=== PATIENT | female | born 1945 | race Caucasian/White ===

== ENCOUNTER 2018-08-02 05:24 | Inpatient (IN) | payer MEDICARE, BC ==
[~2018-08-02] VITALS: Ht 160 cm; Wt 51.7 kg
[2018-08-02] VITALS (7 sets, daily range): BP systolic 126–166; BP diastolic 57–97
[2018-08-02] MEDS ORDERED: RESVERATROL50 MG PO (05:44)
[2018-08-02] MEDS ORDERED: CALCIUM-MAGNES1 EAC7 PO (05:44)
[2018-08-02] MEDS ORDERED: RIFAMPIN300 MG PO (05:44)
[2018-08-02] MEDS ORDERED: ETHAMBUTOL HCL400 MG PO (05:44)
[2018-08-02] MEDS ORDERED: KLOR-CON 1010 MEQ ORAL (05:44)
[2018-08-02] MEDS ORDERED: PROPAFENONE HC150 MG PO (05:44)
[2018-08-02] MEDS ORDERED: FOLIC ACID1 M1 PO (05:44)
[2018-08-02] MEDS ORDERED: ELIQUIS5 MG PO (05:44)
[2018-08-02] MEDS ORDERED: COLCRYS0.6 M1 PO (05:44)
[2018-08-02] MEDS ORDERED: ZITHROMAX250 MG ORAL (05:44)
[2018-08-02] MEDS ORDERED: ASTAXANTHIN4 MG PO (05:44)
[2018-08-02] MEDS ORDERED: NORVASC2.5 MG ORAL (05:44)
[2018-08-02] MEDS ORDERED: PREDNISONE10 MG ORAL (05:44)
[2018-08-02] MEDS ORDERED: dilTIAZem HCl 25mg/5ml Inj IVP ONE ×8 (05:45→06:45)
--- NOTE | 2018-08-02 05:52 | Emergency Room Report ---
History of Present Illness General Chief Complaint: Palpitations Source: Patient Present Illness HPI Is a 72-year-old female with history of atrial fibrillation. She is currently taking Elliquis. She presents with chief complaint of rapid A. fib. She said that for the last week she fell her heart rate beating fast. Most the time minutes sinus tachycardia on the monitor at home. She thinks the reason for this is because she's being currently treating for MAC with multiple antibiotics. She woke up tonight feeling startle. She fell her heart beating very fast. On the monitor it said possible atrial fibrillation at 160s. She denies any syncope. She denies any chest pain or shortness of breath. Similar symptom in the past. Allergies: Coded Allergies: DIPHENHYDRAMINE (Verified Allergy, Unknown, 03/26/15) SHELLFISH DERIVED (Verified Allergy, Unknown, 03/26/15) Uncoded Allergies: HUMARA (Allergy, Unknown, 08/02/18) Patient History Past Medical History: see triage record, old chart reviewed, HTN, AFib Past Surgical History: other Pertinent Family History: none Social History: Denies: smoking Last Menstrual Period: YUSEF Now: No Immunizations: other Reviewed Nursing Documentation: PMH: Agreed; PSxH: Agreed Nursing Documentation-PMH Hx Hypertension: Yes - RA, Hx COPD: Yes Hx Cancer: Yes - CURED Review of Systems Eye: Denies: eye pain, blurred vision ENT: Denies: ear pain, nose congestion, throat swelling Respiratory: Denies: cough, shortness of breath Cardiovascular: Reports: palpitations; Denies: chest pain Gastrointestinal: Denies: abdominal pain, diarrhea, nausea, vomiting Musculoskeletal: Denies: back pain, joint pain Skin: Denies: rash Neurological: Denies: headache, numbness Endocrine: Denies: increased thirst, increased urine Hematologic/Lymphatic: Denies: easy bruising All Other Systems: negative except mentioned in HPI Physical Exam Vital Signs Date Time Temp Pulse Resp B/P (MAP) Pulse Ox O2 Delivery O2 Flow Rate FiO2 08/02/18 05:27 97.9 140 18 151/97 98 Room Air vitals with tachycardia Sp02 EP Interpretation: reviewed, normal General Appearance: well appearing, no apparent distress, alert Head: normocephalic, atraumatic Eyes: bilateral eye PERRL, bilateral eye EOMI ENT: hearing grossly normal, normal pharynx Neck: full range of motion, supple, no meningismus Respiratory: chest non-tender, lungs clear, normal breath sounds Cardiovascular #1: no murmur, tachycardia, irregularly irregular Gastrointestinal: normal bowel sounds, non tender, no mass, no organomegaly, no bruit, non-distended Musculoskeletal: back normal, gait/station normal, normal range of motion Psychiatric: mood/affect normal Skin: warm/dry Procedures Critical Care Time Critical Care Time Critical care is mandated in this patient who presented with rapid atrial fibrillation. Patient require my urgent intervention to attenuate the risks of metabolic collapse which may lead to cardiovascular collapse and . Critical care time is 35 minutes excluding any reportable procedure. Critical care time included evaluation, multiple reevaluation, looking at old charts, interpreting laboratory and diagnostic data, discussing case with patient and family and consultants, and charting. Medical Decision Making Diagnostic Impression: Primary Impression: Rapid atrial fibrillation Additional Impressions: Acute exacerbation of CHF (congestive heart failure) Qualified Codes: I50.9 - Heart failure, unspecified Anemia Qualified Codes: D64.9 - Anemia, unspecified ER Course Patient presents with rapid atrial flutter ablation. Heart rate control after couple doses of Cardizem. She felt better. Also a component of CHF. Lasix given. No evidence of ACS, PE, dissection to name a few. We'll admit. Lab Results Impression labs with anemia EKG Diagnostic Results Rate: tachycardiac Rhythm: other - afib ST Segments: other - NSST changes ASA given to the pt in ED: No Rhythm Strip Diag. Results EP Interpretation: yes Rate: 120 Rhythm: no PVC's, no ectopy, other - A. fib Chest X-Ray Diagnostic Results Chest X-Ray Diagnostic Results : Chest X-Ray Ordered: Yes # of Views/Limited/Complete: 1 View Indication: Chest Pain EP Interpretation: Yes Interpretation: no consolidation, no pneumothorax, other - Cardiomegaly with small effusion Impression: Other - CM Electronically Signed by: Moises Bradley MD Last Vital Signs Date Time Temp Pulse Resp B/P (MAP) Pulse Ox O2 Delivery O2 Flow Rate FiO2 08/02/18 05:27 97.9 140 18 151/97 98 Room Air Status: improved Disposition: ADMITTED INPATIENT Condition: Serious Moises Bradley MD Aug 02, 2018 05:52
--- NOTE | 2018-08-02 05:53 | NUR ---
ED Nurse Note: Patient BIBAnnette RA 41 from home c/o rapid heart rate for 1x week. Patient saw her chancery clerk on Saturday, EKG normal. Patient woke with rapid heart rate this morning and called 911. EKG showed AFIB.
[2018-08-02 05:58] LABS: HEMATOCRIT 23.6 % (37.0-47.0); HEMOGLOBIN 7.1 G/DL (12.0-16.0); MEAN CORPUSCULAR VOLUME 68 FL (80-99); PLATELET COUNT 387 K/UL (150-450); RED BLOOD COUNT 3.46 M/UL (4.20-5.40); RED CELL DISTRIBUTION WIDTH 18.1 % (11.6-14.8); WHITE BLOOD COUNT 8.4 K/UL (4.8-10.8)
[2018-08-02 06:11] LABS: INR 1.2 (0.9-1.1)
--- NOTE | 2018-08-02 06:25 | Diagnostic Imaging Report ---
EXAM: XR Chest, 1 View CLINICAL HISTORY: SOB TECHNIQUE: Frontal view of the chest. COMPARISON: 03/26/15 FINDINGS: Lungs: Interval increase in central lung and interstitial lung markings which may reflect mild edema. Pleural space: Mild blunting of the left costophrenic angle. No pneumothorax. Heart: Stable upper limits of normal cardiovascular silhouette likely accentuated by low lung volumes. Mediastinum: Unremarkable. Bones/joints: Degenerative changes and scoliosis in the thoracic spine. Degenerative changes in both shoulders with calcific density along the inferior aspect of the left glenohumeral joint, unchanged. Vasculature: Calcified mildly tortuous thoracic aorta is again seen. IMPRESSION: Suspect mild edema and small left effusion. Low lung volumes limit evaluation
[2018-08-02 06:35] LABS: ALANINE AMINOTRANSFERASE 24 U/L (12-78); ALBUMIN 2.6 G/DL (3.4-5.0); ALBUMIN/GLOBULIN RATIO 0.7 (1.0-2.7); ALKALINE PHOSPHATASE 80 U/L (46-116); ANION GAP 12 mmol/L (5-15); ASPARTATE AMINO TRANSFERASE 22 U/L (15-37); BILIRUBIN,TOTAL 0.6 MG/DL (0.2-1.0); BLOOD UREA NITROGEN 20 mg/dL (7-18); CALCIUM 9.4 MG/DL (8.5-10.1); CARBON DIOXIDE 25 MMOL/L (21-32); CHLORIDE 105 MMOL/L (98-107); CKMB 1.5 NG/ML (0.0-3.6); CREATINE KINASE 32 U/L (26-308); POTASSIUM 3.6 MMOL/L (3.5-5.1); SODIUM 142 MMOL/L (136-145)
[2018-08-02 07:13] LABS: APPEARANCE,URINE CLEAR; BILIRUBIN, URINE NEGATIVE (NEGATIVE); COLOR,URINE PALE YELLOW; GLUCOSE, URINE (UA) NEGATIVE (NEGATIVE); KETONES,URINE 1+ (NEGATIVE); LEUKOCYTE ESTERASE ,URINE NEGATIVE (NEGATIVE); NITRITE,URINE NEGATIVE (NEGATIVE); PH,URINE 7 (4.5-8.0); PROTEIN,URINE NEGATIVE (NEGATIVE); UROBILINOGEN,URINE NORMAL MG/DL (0.0-1.0)
--- NOTE | 2018-08-02 07:43 | NUR ---
ED Nurse Note: HR 92 at this time, does not complain of any discomfort. Breakfast tray provided at bedside. Will cont to monitor.
--- NOTE | 2018-08-02 08:15 | NUR ---
ED Nurse Note: HR is 87/ sinus rhythm tammy. Will cont to monitor.
--- NOTE | 2018-08-02 08:48 | NUR ---
ED Nurse Note: Report given to Carmen RN at ext [phone]. Pt to transfered to room 201-2 per protocol with all belongings.
--- NOTE | 2018-08-02 09:15 | NUR ---
NURSE NOTES: Received telephone report from Juana BARNETT from ED. Pt. arrived at 0915 from ED. Pt. a/o x 4. No sign of distress. Noted with elevated HR. Denies pain at present. IV line at left AC #20g. in placed SL. Called Dr. Vargas for admit orders. Awaiting for response.
[2018-08-02] MEDS ORDERED: dilTIAZem HCl 50mg/10ml Inj IVP SCH (10:45)
--- NOTE | 2018-08-02 11:37 | NUR ---
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 97.9 HR 140 RR 18 B/P 151/97 BUN 20 BNP 5197 CXR= MILD SMALL LEFT EFFUSION IS: CARDIZEM IV IV BOLUS NS 500ML ADMITTED TO TELE8 TELE STATUS DCP RETURN HOME
--- NOTE | 2018-08-02 15:15 | Cardiology Progress Note ---
Assessment/Plan Assessment/Plan paf ra anemia hs of anal cancer [id number] keep off rythmol message left for dr oro stool ob may need prbx tx keep on eleiquis ekg abn consider switih to med amiod to sinus maint Objective Last 24 Hour Vital Signs Date Time Temp Pulse Resp B/P (MAP) Pulse Ox O2 Delivery O2 Flow Rate FiO2 08/02/18 10:47 154 08/02/18 10:45 146 156/114 08/02/18 10:44 166 08/02/18 09:31 Nasal Cannula 2.0 08/02/18 09:20 97.9 131 20 134/76 (95) 98 08/02/18 09:16 141 08/02/18 09:06 97.9 87 18 126/57 100 Room Air 08/02/18 08:42 97.9 87 18 126/57 100 Room Air 08/02/18 07:03 97.9 90 18 134/88 99 Room Air 08/02/18 06:37 129 116/68 08/02/18 06:26 111 121/53 08/02/18 06:20 112 109/57 08/02/18 06:13 130 133/69 08/02/18 06:11 137 130/66 08/02/18 06:03 130 130/69 08/02/18 05:57 160 124/89 08/02/18 05:52 97.9 160 18 151/97 98 Room Air 08/02/18 05:27 97.9 140 18 151/97 98 Room Air Laboratory Tests Test 08/02/18 05:53 08/02/18 06:12 08/02/18 11:15 White Blood Count 8.4 K/UL (4.8-10.8) Red Blood Count 3.46 M/UL (4.20-5.40) L Hemoglobin 7.1 G/DL (12.0-16.0) L Hematocrit 23.6 % (37.0-47.0) L Mean Corpuscular Volume 68 FL (80-99) L Mean Corpuscular Hemoglobin 20.5 PG (27.0-31.0) L Mean Corpuscular Hemoglobin Concent 30.1 G/DL (32.0-36.0) L Red Cell Distribution Width 18.1 % (11.6-14.8) H Platelet Count 387 K/UL (150-450) Mean Platelet Volume 5.1 FL (6.5-10.1) L Neutrophils (%) (Auto) % (45.0-75.0) Lymphocytes (%) (Auto) % (20.0-45.0) Monocytes (%) (Auto) % (1.0-10.0) Eosinophils (%) (Auto) % (0.0-3.0) Basophils (%) (Auto) % (0.0-2.0) Prothrombin Time 12.1 SEC (9.30-11.50) H Prothromb Time International Ratio 1.2 (0.9-1.1) H Activated Partial Thromboplast Time 33 SEC (23-33) Sodium Level 142 MMOL/L (136-145) Potassium Level 3.6 MMOL/L (3.5-5.1) Chloride Level 105 MMOL/L (98-107) Carbon Dioxide Level 25 MMOL/L (21-32) Anion Gap 12 mmol/L (5-15) Blood Urea Nitrogen 20 mg/dL (7-18) H Creatinine 1.0 MG/DL (0.55-1.30) Estimat Glomerular Filtration Rate mL/min (>60) Glucose Level 104 MG/DL (74-106) Calcium Level 9.4 MG/DL (8.5-10.1) Total Bilirubin 0.6 MG/DL (0.2-1.0) Aspartate Amino Transf (AST/SGOT) 22 U/L (15-37) Alanine Aminotransferase (ALT/SGPT) 24 U/L (12-78) Alkaline Phosphatase 80 U/L (46-116) Total Creatine Kinase 32 U/L (26-308) Creatine Kinase MB 1.5 NG/ML (0.0-3.6) Creatine Kinase MB Relative Index 4.6 Troponin I 0.027 ng/mL (0.000-0.056) 0.051 ng/mL (0.000-0.056) Pro-B-Type Natriuretic Peptide 5197 pg/mL (0-125) H Total Protein 6.5 G/DL (6.4-8.2) Albumin 2.6 G/DL (3.4-5.0) L Globulin 3.9 g/dL Albumin/Globulin Ratio 0.7 (1.0-2.7) L Urine Color Pale yellow Urine Appearance Clear Urine pH 7 (4.5-8.0) Urine Specific [place] 1.010 (1.005-1.035) Urine Protein Negative (NEGATIVE) Urine Glucose (UA) Negative (NEGATIVE) Urine Ketones 1+ (NEGATIVE) H Urine Blood Negative (NEGATIVE) Urine Nitrite Negative (NEGATIVE) Urine Bilirubin Negative (NEGATIVE) Urine Urobilinogen Normal MG/DL (0.0-1.0) Urine Leukocyte Esterase Negative (NEGATIVE) Luis Escobar MD Aug 02, 2018 15:15
--- NOTE | 2018-08-02 15:33 | Cardiology Progress Note ---
Assessment/Plan Assessment/Plan paf ra anemia hs of anal cancer [id number] keep off rythmol message left for dr saunders stool ob may need prbx tx check ldh for hemolysis keep on eliquis iff ob neg or if anemia is no confimred onrepat checking ekg abn consider switih to med amiod or other agent maint sinu dc norvasc start dilt hold off on treatment for mac until anemiaa fib is stabalized ep to see hold of Objective Last 24 Hour Vital Signs Date Time Temp Pulse Resp B/P (MAP) Pulse Ox O2 Delivery O2 Flow Rate FiO2 08/02/18 10:47 154 08/02/18 10:45 146 156/114 08/02/18 10:44 166 08/02/18 09:31 Nasal Cannula 2.0 08/02/18 09:20 97.9 131 20 134/76 (95) 98 08/02/18 09:16 141 08/02/18 09:06 97.9 87 18 126/57 100 Room Air 08/02/18 08:42 97.9 87 18 126/57 100 Room Air 08/02/18 07:03 97.9 90 18 134/88 99 Room Air 08/02/18 06:37 129 116/68 08/02/18 06:26 111 121/53 08/02/18 06:20 112 109/57 08/02/18 06:13 130 133/69 08/02/18 06:11 137 130/66 08/02/18 06:03 130 130/69 08/02/18 05:57 160 124/89 08/02/18 05:52 97.9 160 18 151/97 98 Room Air 08/02/18 05:27 97.9 140 18 151/97 98 Room Air Laboratory Tests Test 08/02/18 05:53 08/02/18 06:12 08/02/18 11:15 White Blood Count 8.4 K/UL (4.8-10.8) Red Blood Count 3.46 M/UL (4.20-5.40) L Hemoglobin 7.1 G/DL (12.0-16.0) L Hematocrit 23.6 % (37.0-47.0) L Mean Corpuscular Volume 68 FL (80-99) L Mean Corpuscular Hemoglobin 20.5 PG (27.0-31.0) L Mean Corpuscular Hemoglobin Concent 30.1 G/DL (32.0-36.0) L Red Cell Distribution Width 18.1 % (11.6-14.8) H Platelet Count 387 K/UL (150-450) Mean Platelet Volume 5.1 FL (6.5-10.1) L Neutrophils (%) (Auto) % (45.0-75.0) Lymphocytes (%) (Auto) % (20.0-45.0) Monocytes (%) (Auto) % (1.0-10.0) Eosinophils (%) (Auto) % (0.0-3.0) Basophils (%) (Auto) % (0.0-2.0) Prothrombin Time 12.1 SEC (9.30-11.50) H Prothromb Time International Ratio 1.2 (0.9-1.1) H Activated Partial Thromboplast Time 33 SEC (23-33) Sodium Level 142 MMOL/L (136-145) Potassium Level 3.6 MMOL/L (3.5-5.1) Chloride Level 105 MMOL/L (98-107) Carbon Dioxide Level 25 MMOL/L (21-32) Anion Gap 12 mmol/L (5-15) Blood Urea Nitrogen 20 mg/dL (7-18) H Creatinine 1.0 MG/DL (0.55-1.30) Estimat Glomerular Filtration Rate mL/min (>60) Glucose Level 104 MG/DL (74-106) Calcium Level 9.4 MG/DL (8.5-10.1) Total Bilirubin 0.6 MG/DL (0.2-1.0) Aspartate Amino Transf (AST/SGOT) 22 U/L (15-37) Alanine Aminotransferase (ALT/SGPT) 24 U/L (12-78) Alkaline Phosphatase 80 U/L (46-116) Total Creatine Kinase 32 U/L (26-308) Creatine Kinase MB 1.5 NG/ML (0.0-3.6) Creatine Kinase MB Relative Index 4.6 Troponin I 0.027 ng/mL (0.000-0.056) 0.051 ng/mL (0.000-0.056) Pro-B-Type Natriuretic Peptide 5197 pg/mL (0-125) H Total Protein 6.5 G/DL (6.4-8.2) Albumin 2.6 G/DL (3.4-5.0) L Globulin 3.9 g/dL Albumin/Globulin Ratio 0.7 (1.0-2.7) L Urine Color Pale yellow Urine Appearance Clear Urine pH 7 (4.5-8.0) Urine Specific [place] 1.010 (1.005-1.035) Urine Protein Negative (NEGATIVE) Urine Glucose (UA) Negative (NEGATIVE) Urine Ketones 1+ (NEGATIVE) H Urine Blood Negative (NEGATIVE) Urine Nitrite Negative (NEGATIVE) Urine Bilirubin Negative (NEGATIVE) Urine Urobilinogen Normal MG/DL (0.0-1.0) Urine Leukocyte Esterase Negative (NEGATIVE) Luis Escobar MD Aug 02, 2018 15:33
[2018-08-02 15:52] LABS: HEMATOCRIT 24.9 % (37.0-47.0); HEMOGLOBIN 7.7 G/DL (12.0-16.0); MEAN CORPUSCULAR VOLUME 68 FL (80-99); PLATELET COUNT 436 K/UL (150-450); RED BLOOD COUNT 3.66 M/UL (4.20-5.40); RED CELL DISTRIBUTION WIDTH 18.2 % (11.6-14.8); WHITE BLOOD COUNT 9.4 K/UL (4.8-10.8)
[2018-08-02] MEDS: dilTIAZem HCl 30mg tab ORAL SCH ×2 (16:00→21:21)
--- NOTE | 2018-08-02 16:24 | Consultation ---
Consult Note Consult Note Cardiac EP full consult dictated # [id number] Sandhya Turner MD Aug 02, 2018 16:24
[2018-08-02 16:33] LABS: % IRON SATURATION 4 % (15-50); IRON 8 ug/dL (50-175); TOTAL IRON BINDING CAPACITY 206 ug/dL (250-450)
[2018-08-02 16:34] LABS: LACTATE DEHYDROGENASE 195 U/L (81-234)
[2018-08-02] MEDS ORDERED: Metoprolol Succinate XL 50mg tab ORAL SCH (18:00)
--- NOTE | 2018-08-02 18:46 | NUR ---
NURSE NOTES: Called and f/u blood bank/lab regarding type and cross and if blood is ready. It still in process and at around 1855 they will call 2E.
--- NOTE | 2018-08-02 19:07 | NUR ---
HAND-OFF: Report given to Kim BARNETT. Pt. remain stable.
--- NOTE | 2018-08-02 19:10 | NUR ---
NURSE NOTES: Received patient from ANIBAL Borja. Patient on bed AOx4, noted weakness, both upper and lower extremities affected by arthritis. Verbalizes having pains with ADLs. IV site on left AC intact and patent. Call light within reach. Bed brakes engaged.
--- NOTE | 2018-08-02 19:45 | History and Physical Report ---
DATE OF ADMISSION: 08/02/2018 HISTORY OF PRESENT ILLNESS: This is an elderly female, who was living at home, came to the emergency room for palpitation and atrial fibrillation with rapid ventricular rate. The patient also has [id number] short of breath. Probably, she is in CHF. The patient has generalized weakness and having multiple bruises on the both legs, also has a history of interstitial, probably tuberculosis, was treated with . CURRENT MEDICATIONS: She is taking apixaban, Norvasc, folic acid, prednisone, resveratrol, and . ALLERGIES: NKA to medications. PHYSICAL EXAMINATION: GENERAL: This is cachectic female, mild short of breath. VITAL SIGNS: Blood pressure 156/114, pulse 131 to 154, respirations 20, and temperature 97.9. SKIN: Dry and poor skin turgor. HEENT: No JVD. CHEST: Bilateral decreased breath sounds. Few crackles. CARDIOVASCULAR: Regular rate and rhythm. No gallop. No murmur. ABDOMEN: Soft. Positive bowel sounds. EXTREMITIES: No CCE. NEUROLOGICAL: Generalized weakness. ASSESSMENT: 1. Atrial fibrillation with rapid ventricular rate. 2. Coagulopathy. 3. Anemia. 4. Short of breath, possible congestive heart failure. 5. Congestive heart failure. PLAN: The patient was add digoxin, metoprolol, and Cardizem. Cardiology consult was obtained. We are holding apixaban and Lovenox. Stool occult blood x2. Type and cross transfuse 1 unit. I discussed with Dr. Escobar as well as Dr. Mason for GI consult. The patient is currently Full Code. Walter Vargas M.D. DR: ANDREAS JOB#: [id number] CC:
[2018-08-02] MEDS ORDERED: Enoxaparin 40mg Inj SUBQ SCH (21:00)
[2018-08-02] MEDS ORDERED: Eliquis 2.5mg tablet ORAL SCH (21:00)
[2018-08-02] MEDS: Sotalol 80mg tab ORAL SCH (21:01)
--- NOTE | 2018-08-02 21:35 | NUR ---
NURSE NOTES: Patient complaints of headache and Temp 100.5, tylenol 650 PO given. At this time, waiting for blood bank to have the bag of blood ready for transfusion.
--- NOTE | 2018-08-02 22:00 | NUR ---
NURSE NOTES: BT started. Patient is on bed. No signs of distress at this time. Addendum: 08/03/18 at 0146 by MARCELL PERRY RN NURSE NOTES: BT ended. Post-transfusion VS 98.8T 75HR 120/60BP. Patient verbalizes "I am feeling a whole lot better."
[2018-08-03] VITALS: BP 130/61
--- NOTE | 2018-08-03 01:00 | NUR ---
NURSE NOTES: Patient complaints of hospital bed being stiff. Offered SPR mattress. Patient verbalizes "I am very much comfortable."
--- NOTE | 2018-08-03 01:15 | Consultation ---
DATE OF CONSULTATION: 08/02/2018 CONSULTING PHYSICIAN: Sandhya Turner M.D. REQUESTING PHYSICIAN: Luis Escobar M.D. REASON FOR CONSULT: Atrial fibrillation, palpitations. HISTORY OF PRESENT ILLNESS: The patient is a 72-year-old woman with paroxysmal atrial fibrillation who presented with palpitations and rapidly conducted atrial fibrillation. She is a 72-year-old woman with atrial fibrillation initially diagnosed about 7 years ago with two previous admissions for treatment of rapid atrial fibrillation, one about 7 years ago during which the rhythm converted spontaneously and another about 4 years ago similarly with spontaneous rhythm conversion. She has been maintained on propafenone 150 mg 3 times daily as well as Eliquis 5 mg twice daily. She has a history of hypertension, chronic obstructive pulmonary disease, previous CVA approximately 5 years ago aphasia, which resolved) and EUGENIE. She has recently started treatment for EUGENIE with rifampin, azithromycin, and ethambutol. She states that she had taken azithromycin and ethambutol as prescribed for about two weeks, but has not yet started rifampin. 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 EKG was performed and she was told that she was not in atrial fibrillation. Last night, she awoke from sleep with rapid palpitations. She presented to the emergency room and was noted to be in atrial fibrillation. Rates in the 140. She received intravenous diltiazem and rhythm converted back to normal sinus. She was admitted for further treatment. Atrial fibrillation recurred, but then reverted again back to normal sinus rhythm after diltiazem. She was noted in the emergency room to have a hemoglobin of 7.1, and reports dark stool recently. MEDICATIONS ON ADMISSION: Eliquis 5 mg twice daily, propafenone 150 mg 3 times daily, folic acid 1 mg daily, amlodipine 5 mg daily, [place]-3 tablets daily, colchicine 0.6 mg daily, prednisone 10 mg daily, and potassium 10 mEq daily. ALLERGIES: Shell fish, Humira, and Benadryl. PAST MEDICAL HISTORY: As noted above. Also, history of rheumatoid arthritis, COPD, MAC, hypertension, and previous CVA. SOCIAL HISTORY: The patient has a previous history of 2 to 3 packs per day. Stopped smoking in the late 80s. She previously drank alcohol socially. REVIEW OF SYSTEMS: Negative except as per history of present illness. PHYSICAL EXAMINATION: VITAL SIGNS: Blood pressure is 136/76, pulse 97 regular, respirations 20, afebrile, and oxygen saturation 98% on two liters nasal cannula oxygen. HEENT: Normocephalic and atraumatic. Pupils are equal, round, and reactive to light. Sclerae anicteric. Oral mucosa are moist. NECK: Supple. There is no jugular venous distention. LUNGS: Breath sounds are diminished bilaterally. No rales or wheezes. HEART: Regular rate and rhythm. S1 and S2 with no murmurs, S3, or S4. ABDOMEN: Soft, nontender, and nondistended. No palpable mass. No organomegaly. EXTREMITIES: No cyanosis, clubbing, or edema. Distal pulses are not palpable, but extremities are warm and perfused. SKIN: There is an ecchymotic area of about 4 cm over the right calf. NEUROLOGIC: No gross focal motor deficits. LABORATORY DATA: Hemoglobin 7.1, hematocrit 23.6, white blood count 8400, and platelets 387,000. Sodium 142, potassium 3.6, BUN 20, creatinine 1.0, chloride 105, bicarbonate 25, troponin 0.027 on admission and repeat 0.051. ProBNP 5197. Liver function tests are normal. EKG on admission shows atrial fibrillation with a ventricular rate of 158 beats per minute, axis +60 degrees. Nonspecific T-wave changes. Repeat EKG, following conversion of rhythm shows sinus rhythm at a rate of 91 beats per minute, axis +60 degrees, inverted T-waves in 3, aVF, V4 through V6. Chest x-ray shows mild increased interstitial markings, tortuous aorta. ASSESSMENT AND RECOMMENDATIONS: The patient is a 72-year-old woman with a history of chronic obstructive pulmonary disease, MAC with recent initiation of treatment with rifampin, azithromycin, and ethambutol; hypertension; paroxysmal atrial fibrillation; and previous CVA who is admitted with rapidly conducted atrial fibrillation. Her rhythm has now reverted back to normal sinus. She is anemic with a hemoglobin of 7.1, and may have gastrointestinal bleeding. I would agree with stopping Eliquis for now and obtain a gastroenterology consultation with regard to maintenance of sinus rhythm. There is an interaction between rifampin and ____ levels would be lowered by rifampin, which might increase her tendency toward further episodes of atrial fibrillation. Amiodarone on the other hand would decrease rifampin level. At this point, I would consider sotalol for antiarrhythmic treatment as it is renally cleared and would be the least likely to interact with the drugs that she has been started on for MAC. We will start sotalol on telemetry with close monitoring of her rhythm and QT interval. Sandhya Turner M.D. DR: TIGRE JOB#: [id number] CC:
[2018-08-03 04:00] VITALS: BP 128/57
--- NOTE | 2018-08-03 04:21 | NUR ---
NURSE NOTES: EKG done. In the chart. Patient is requesting for stronger pain medication other than Tylenol 650mg PO at this time. Made aware that will notify MD in AM.
[2018-08-03] MEDS: dilTIAZem HCl 30mg tab ORAL SCH ×3 (06:24→21:29)
--- NOTE | 2018-08-03 07:18 | NUR ---
HAND-OFF: Report given to ANIBAL Borja. Endorsed plan of care.
--- NOTE | 2018-08-03 07:20 | NUR ---
NURSE NOTES: Received update bedside report from Kim BARNETT. Pt. OOB up in chair. A/O x 4. No sign of distress. C/O mild aches and pain due to her arthritis. Pt. s/p blood transfusion last night. Tolerated well. IV at left AC #20g. in placed SL. Bed in low position, locked. Call light within reach. Will cont. to monitor.
--- NOTE | 2018-08-03 07:30 | NUR ---
HAND-OFF: Report given to Smith RN. Pt. remain stable.
[2018-08-03 07:47] LABS: HEMATOCRIT 26.9 % (37.0-47.0); HEMOGLOBIN 8.4 G/DL (12.0-16.0); MEAN CORPUSCULAR VOLUME 70 FL (80-99); PLATELET COUNT 414 K/UL (150-450); RED BLOOD COUNT 3.82 M/UL (4.20-5.40); RED CELL DISTRIBUTION WIDTH 19.9 % (11.6-14.8); WHITE BLOOD COUNT 11.6 K/UL (4.8-10.8)
[2018-08-03 08:00] VITALS: BP 123/61
[2018-08-03 08:06] LABS: CHOLESTEROL 142 MG/DL (< 200); CREATINE KINASE 44 U/L (26-308); HDL CHOLESTEROL 40 MG/DL (40-60); TRIGLYCERIDES 82 MG/DL (30-150)
[2018-08-03 08:14] LABS: IRON 12 ug/dL (50-175)
--- NOTE | 2018-08-03 09:39 | NUR ---
NURSE NOTES: pt had episode of rapid afib last night from 2045- 2149 with HR highest of 170, Dr Matos here and was aware. Pt SR in the monitor with HR 74 at this time, not in distress.
[2018-08-03] MEDS: Sotalol 80mg tab ORAL SCH ×2 (09:44→21:23)
--- NOTE | 2018-08-03 09:45 | Cardiac Electrophysiology PN ---
Assessment/Plan Problem List: (1) Anemia (2) EUGENIE (mycobacterium avium-intracellulare) infection (3) COPD (chronic obstructive pulmonary disease) (4) Rapid atrial fibrillation Status: stable, progressing Status Narrative Mrs. Woody is tolerating sotalol so far. EKG today shows SR w/ T inversions inferiorly and laterally. QTc is 450 ms . She had a brief episode of AF last pm, which resolved. She has no chest pain, and troponins are borderline ( max 0.051) - possible demand ischemia in the setting of rapid AF. Her H/H are improved after transfusion of PRBCs yesterday. Assessment/Plan Will continue sotalol 80 mg bid and monitor QTc , rhythm and monitor for any bronchospasm. Continue cardizem. ECHO to evaluate LV wall motion and EF. Will d/w Dr. Rosas, pulmonary, re: MAC treatment and antiarrhythmic drug potential interactions. Anemia w/u per GI and hematology. Subjective ROS Limited/Unobtainable: No Subjective Cardiac EP Mrs. Woody had an episode of AF w/ rapid ventricular rates, 150s-160s last pm , appx 2100, lasting about 45 min. This am, she is comfortable, without c/o palpitations or dyspnea, in SR Objective Last 24 Hour Vital Signs Date Time Temp Pulse Resp B/P (MAP) Pulse Ox O2 Delivery O2 Flow Rate FiO2 08/03/18 06:24 71 08/03/18 04:00 98.4 76 18 128/57 (80) 96 08/03/18 03:54 75 08/03/18 00:00 99.2 78 18 130/61 (84) 97 08/02/18 23:56 79 08/02/18 21:21 155 08/02/18 21:01 145 141/66 08/02/18 21:00 Nasal Cannula 2.0 08/02/18 21:00 99.2 08/02/18 20:46 99.1 08/02/18 20:03 110 08/02/18 20:00 100.5 97 18 144/66 (92) 96 08/02/18 16:00 97 148/96 08/02/18 16:00 98.8 97 18 148/96 (113) 93 08/02/18 15:18 100 08/02/18 12:00 97.3 144 18 166/84 (111) 94 08/02/18 10:47 154 08/02/18 10:45 146 156/114 08/02/18 10:44 166 General Appearance: WD/WN, no apparent distress, alert EENT: PERRL/EOMI Neck: non-tender, no JVD Rhythm: NSR Cardiovascular: normal rate, regular rhythm, no gallop/murmur Respiratory/Chest: other - decreased BS bilat. No rales or wheezes Abdomen: non tender, soft, no mass Extremities: non-tender, no swelling, other - decreased distal LE pulses bilat Intake and Output 08/02/18 08/03/18 19:00 07:00 Intake Total 440 ml Output Total 450 ml Balance -10 ml Intake Oral 440 ml Output Urine Total 450 ml # Bowel Movements 1 Laboratory Tests Test 08/02/18 11:15 08/02/18 14:40 08/02/18 22:00 08/03/18 06:50 Troponin I 0.051 ng/mL (0.000-0.056) 0.033 ng/mL (0.000-0.056) White Blood Count 9.4 K/UL (4.8-10.8) 11.6 K/UL (4.8-10.8) H Red Blood Count 3.66 M/UL (4.20-5.40) L 3.82 M/UL (4.20-5.40) L Hemoglobin 7.7 G/DL (12.0-16.0) L 8.4 G/DL (12.0-16.0) L Hematocrit 24.9 % (37.0-47.0) L 26.9 % (37.0-47.0) L Mean Corpuscular Volume 68 FL (80-99) L 70 FL (80-99) L Mean Corpuscular Hemoglobin 21.0 PG (27.0-31.0) L 22.0 PG (27.0-31.0) L Mean Corpuscular Hemoglobin Concent 30.9 G/DL (32.0-36.0) L 31.2 G/DL (32.0-36.0) L Red Cell Distribution Width 18.2 % (11.6-14.8) H 19.9 % (11.6-14.8) H Platelet Count 436 K/UL (150-450) 414 K/UL (150-450) Mean Platelet Volume 5.3 FL (6.5-10.1) L 5.6 FL (6.5-10.1) L Neutrophils (%) (Auto) % (45.0-75.0) % (45.0-75.0) Lymphocytes (%) (Auto) % (20.0-45.0) % (20.0-45.0) Monocytes (%) (Auto) % (1.0-10.0) % (1.0-10.0) Eosinophils (%) (Auto) % (0.0-3.0) % (0.0-3.0) Basophils (%) (Auto) % (0.0-2.0) % (0.0-2.0) Differential Total Cells Counted 100 100 Neutrophils % (Manual) 85 % (45-75) H 90 % (45-75) H Lymphocytes % (Manual) 13 % (20-45) L 7 % (20-45) L Monocytes % (Manual) 2 % (1-10) 3 % (1-10) Eosinophils % (Manual) 0 % (0-3) 0 % (0-3) Basophils % (Manual) 0 % (0-2) 0 % (0-2) Band Neutrophils 0 % (0-8) 0 % (0-8) Platelet Estimate Adequate Adequate Platelet Morphology Normal Normal Hypochromasia 1+ 1+ Anisocytosis 1+ 2+ Microcytosis 1+ 1+ Iron Level 8 ug/dL (50-175) L 12 ug/dL (50-175) L Total Iron Binding Capacity 206 ug/dL (250-450) L Percent Iron Saturation 4 % (15-50) L Unsaturated Iron Binding 198 ug/dL (112-346) Lactate Dehydrogenase 195 U/L (81-234) Stool Occult Blood Pending Polychromasia 1+ Magnesium Level 1.9 MG/DL (1.8-2.4) Total Creatine Kinase 44 U/L (26-308) Triglycerides Level 82 MG/DL (30-150) Cholesterol Level 142 MG/DL (< 200) LDL Cholesterol 88 mg/dL (<100) HDL Cholesterol 40 MG/DL (40-60) Cholesterol/HDL Ratio 3.6 (3.3-4.4) Thyroid Stimulating Hormone (TSH) 7.136 uiU/mL (0.358-3.740) Sandhya Turner MD Aug 03, 2018 09:45
[2018-08-03] MEDS: traMADol 50mg tab ORAL PRN ×2 (11:25→17:35)
--- NOTE | 2018-08-03 11:27 | Cardiology Progress Note ---
Assessment/Plan Assessment/Plan paf ra anemia hs of anal cancer iron deff keep off rythmol on sotalol message left for dr saunders 2/2 stool ob penign however iron leel low gi saeed tomorrow may need prbx tx check ldh for hemolysis keep on eliquis iff ob neg or if anemia is no confirmed on repeat checking ekg noted form this am to discuss with dr restrepo off norvasc on cardizem seems ivette tolerating hold off on treatment for mac until anemia fib is stabilized Subjective Cardiovascular: Denies: chest pain, lightheadedness, palpitations Respiratory: Reports: shortness of breath - baseline Gastrointestinal/Abdominal: Denies: abdominal pain Genitourinary: Denies: burning Objective Last 24 Hour Vital Signs Date Time Temp Pulse Resp B/P (MAP) Pulse Ox O2 Delivery O2 Flow Rate FiO2 08/03/18 09:45 75 08/03/18 09:44 75 123/61 08/03/18 09:00 Nasal Cannula 2.0 08/03/18 08:00 98.4 75 21 123/61 (81) 97 08/03/18 06:24 71 08/03/18 04:00 98.4 76 18 128/57 (80) 96 08/03/18 03:54 75 08/03/18 00:00 99.2 78 18 130/61 (84) 97 08/02/18 23:56 79 08/02/18 21:21 155 08/02/18 21:01 145 141/66 08/02/18 21:00 Nasal Cannula 2.0 08/02/18 21:00 99.2 08/02/18 20:46 99.1 08/02/18 20:03 110 08/02/18 20:00 100.5 97 18 144/66 (92) 96 08/02/18 16:00 97 148/96 08/02/18 16:00 98.8 97 18 148/96 (113) 93 08/02/18 15:18 100 08/02/18 12:00 97.3 144 18 166/84 (111) 94 General Appearance: no apparent distress, alert Neck: supple Cardiovascular: normal rate, regular rhythm Respiratory/Chest: lungs clear, normal breath sounds Abdomen: non tender, soft Extremities: no swelling Intake and Output 08/02/18 08/03/18 18:59 06:59 Intake Total 440 ml Output Total 450 ml Balance -10 ml Intake Oral 440 ml Output Urine Total 450 ml # Bowel Movements 1 Laboratory Tests Test 08/02/18 14:40 08/02/18 22:00 08/03/18 06:50 White Blood Count 9.4 K/UL (4.8-10.8) 11.6 K/UL (4.8-10.8) H Red Blood Count 3.66 M/UL (4.20-5.40) L 3.82 M/UL (4.20-5.40) L Hemoglobin 7.7 G/DL (12.0-16.0) L 8.4 G/DL (12.0-16.0) L Hematocrit 24.9 % (37.0-47.0) L 26.9 % (37.0-47.0) L Mean Corpuscular Volume 68 FL (80-99) L 70 FL (80-99) L Mean Corpuscular Hemoglobin 21.0 PG (27.0-31.0) L 22.0 PG (27.0-31.0) L Mean Corpuscular Hemoglobin Concent 30.9 G/DL (32.0-36.0) L 31.2 G/DL (32.0-36.0) L Red Cell Distribution Width 18.2 % (11.6-14.8) H 19.9 % (11.6-14.8) H Platelet Count 436 K/UL (150-450) 414 K/UL (150-450) Mean Platelet Volume 5.3 FL (6.5-10.1) L 5.6 FL (6.5-10.1) L Neutrophils (%) (Auto) % (45.0-75.0) % (45.0-75.0) Lymphocytes (%) (Auto) % (20.0-45.0) % (20.0-45.0) Monocytes (%) (Auto) % (1.0-10.0) % (1.0-10.0) Eosinophils (%) (Auto) % (0.0-3.0) % (0.0-3.0) Basophils (%) (Auto) % (0.0-2.0) % (0.0-2.0) Differential Total Cells Counted 100 100 Neutrophils % (Manual) 85 % (45-75) H 90 % (45-75) H Lymphocytes % (Manual) 13 % (20-45) L 7 % (20-45) L Monocytes % (Manual) 2 % (1-10) 3 % (1-10) Eosinophils % (Manual) 0 % (0-3) 0 % (0-3) Basophils % (Manual) 0 % (0-2) 0 % (0-2) Band Neutrophils 0 % (0-8) 0 % (0-8) Platelet Estimate Adequate Adequate Platelet Morphology Normal Normal Hypochromasia 1+ 1+ Anisocytosis 1+ 2+ Microcytosis 1+ 1+ Iron Level 8 ug/dL (50-175) L 12 ug/dL (50-175) L Total Iron Binding Capacity 206 ug/dL (250-450) L Percent Iron Saturation 4 % (15-50) L Unsaturated Iron Binding 198 ug/dL (112-346) Lactate Dehydrogenase 195 U/L (81-234) Stool Occult Blood Pending Polychromasia 1+ Magnesium Level 1.9 MG/DL (1.8-2.4) Total Creatine Kinase 44 U/L (26-308) Troponin I 0.033 ng/mL (0.000-0.056) Triglycerides Level 82 MG/DL (30-150) Cholesterol Level 142 MG/DL (< 200) LDL Cholesterol 88 mg/dL (<100) HDL Cholesterol 40 MG/DL (40-60) Cholesterol/HDL Ratio 3.6 (3.3-4.4) Thyroid Stimulating Hormone (TSH) 7.136 uiU/mL (0.358-3.740) Luis Escobar MD Aug 03, 2018 11:27
[2018-08-03 12:00] VITALS: BP 125/56
--- NOTE | 2018-08-03 13:05 | Consultation ---
History of Present Illness General Date patient seen: Aug 03, 2018 Chief Complaint: Palpitations Present Illness Allergies: Coded Allergies: DIPHENHYDRAMINE (Verified Allergy, Unknown, 03/26/15) SHELLFISH DERIVED (Verified Allergy, Unknown, 03/26/15) Uncoded Allergies: HUMARA (Allergy, Unknown, 08/02/18) Medication History Scheduled Amlodipine Besylate (Norvasc), 2.5 MG ORAL DAILY, (Reported) Azithromycin* (Zithromax*), 250 MG ORAL DAILY, (Reported) Potassium Chloride (Klor-Con 10), 10 MEQ ORAL DAILY, (Reported) Prednisone* (Prednisone*), 10 MG ORAL DAILY, (Reported) Propafenone Hcl* (Rhythmol*), 150 MG PO TID, (Reported) Miscellaneous Medications Apixaban (Eliquis), 5 MG PO, (Reported) Astaxanthin (Astaxanthin), Unknown Dose PO, (Reported) Calcium Carb/Mag Ox/Zinc Sulf (Gjoutfs-Gaxgebjxb-Hjcy Tablet), 1 EACH PO, ( Reported) Colchicine (Colcrys), 0.6 MG PO, (Reported) Ethambutol Hcl (Ethambutol Hcl), 400 MG PO, (Reported) Folic Acid (Folic Acid), 1 MG PO, (Reported) Resveratrol (Resveratrol), Unknown Dose PO, (Reported) Rifampin (Rifampin), 300 MG PO, (Reported) Patient History Healthcare decision maker Resuscitation status Full Code Advanced Directive on File Physical Exam Last 24 Hour Vital Signs Date Time Temp Pulse Resp B/P (MAP) Pulse Ox O2 Delivery O2 Flow Rate FiO2 08/03/18 09:45 75 08/03/18 09:44 75 123/61 08/03/18 09:00 Nasal Cannula 2.0 08/03/18 08:00 98.4 75 21 123/61 (81) 97 08/03/18 07:50 74 08/03/18 06:24 71 08/03/18 04:00 98.4 76 18 128/57 (80) 96 08/03/18 03:54 75 08/03/18 00:00 99.2 78 18 130/61 (84) 97 08/02/18 23:56 79 08/02/18 21:21 155 08/02/18 21:01 145 141/66 08/02/18 21:00 Nasal Cannula 2.0 08/02/18 21:00 99.2 08/02/18 20:46 99.1 08/02/18 20:03 110 08/02/18 20:00 100.5 97 18 144/66 (92) 96 08/02/18 16:00 97 148/96 08/02/18 16:00 98.8 97 18 148/96 (113) 93 08/02/18 15:18 100 Intake and Output 08/02/18 08/03/18 18:59 06:59 Intake Total 440 ml Output Total 450 ml Balance -10 ml Intake Oral 440 ml Output Urine Total 450 ml # Bowel Movements 1 Laboratory Tests Test 08/02/18 14:40 08/02/18 22:00 08/03/18 06:50 White Blood Count 9.4 K/UL (4.8-10.8) 11.6 K/UL (4.8-10.8) H Red Blood Count 3.66 M/UL (4.20-5.40) L 3.82 M/UL (4.20-5.40) L Hemoglobin 7.7 G/DL (12.0-16.0) L 8.4 G/DL (12.0-16.0) L Hematocrit 24.9 % (37.0-47.0) L 26.9 % (37.0-47.0) L Mean Corpuscular Volume 68 FL (80-99) L 70 FL (80-99) L Mean Corpuscular Hemoglobin 21.0 PG (27.0-31.0) L 22.0 PG (27.0-31.0) L Mean Corpuscular Hemoglobin Concent 30.9 G/DL (32.0-36.0) L 31.2 G/DL (32.0-36.0) L Red Cell Distribution Width 18.2 % (11.6-14.8) H 19.9 % (11.6-14.8) H Platelet Count 436 K/UL (150-450) 414 K/UL (150-450) Mean Platelet Volume 5.3 FL (6.5-10.1) L 5.6 FL (6.5-10.1) L Neutrophils (%) (Auto) % (45.0-75.0) % (45.0-75.0) Lymphocytes (%) (Auto) % (20.0-45.0) % (20.0-45.0) Monocytes (%) (Auto) % (1.0-10.0) % (1.0-10.0) Eosinophils (%) (Auto) % (0.0-3.0) % (0.0-3.0) Basophils (%) (Auto) % (0.0-2.0) % (0.0-2.0) Differential Total Cells Counted 100 100 Neutrophils % (Manual) 85 % (45-75) H 90 % (45-75) H Lymphocytes % (Manual) 13 % (20-45) L 7 % (20-45) L Monocytes % (Manual) 2 % (1-10) 3 % (1-10) Eosinophils % (Manual) 0 % (0-3) 0 % (0-3) Basophils % (Manual) 0 % (0-2) 0 % (0-2) Band Neutrophils 0 % (0-8) 0 % (0-8) Platelet Estimate Adequate Adequate Platelet Morphology Normal Normal Hypochromasia 1+ 1+ Anisocytosis 1+ 2+ Microcytosis 1+ 1+ Iron Level 8 ug/dL (50-175) L 12 ug/dL (50-175) L Total Iron Binding Capacity 206 ug/dL (250-450) L Percent Iron Saturation 4 % (15-50) L Unsaturated Iron Binding 198 ug/dL (112-346) Lactate Dehydrogenase 195 U/L (81-234) Stool Occult Blood Negative (NEGATIVE) Polychromasia 1+ Magnesium Level 1.9 MG/DL (1.8-2.4) Total Creatine Kinase 44 U/L (26-308) Troponin I 0.033 ng/mL (0.000-0.056) Triglycerides Level 82 MG/DL (30-150) Cholesterol Level 142 MG/DL (< 200) LDL Cholesterol 88 mg/dL (<100) HDL Cholesterol 40 MG/DL (40-60) Cholesterol/HDL Ratio 3.6 (3.3-4.4) Thyroid Stimulating Hormone (TSH) 7.136 uiU/mL (0.358-3.740) Height (Feet): 5 Height (Inches): 3.00 Weight (Pounds): 114 Medications Current Medications Medications (Trade) Dose Ordered Sig/Yvon Route PRN Reason Start Time Stop Time Status Last Admin Dose Admin Acetaminophen (Tylenol) 650 mg Q4H PRN ORAL Mild Pain/Temp > 100.5 08/02/18 10:30 09/01/18 10:29 08/03/18 04:44 Bisacodyl (Dulcolax) 10 mg ONCE ORAL 08/03/18 16:00 08/03/18 17:00 Brimonidine Tartrate (Alphagan) 1 drop BID LEFT EYE 08/03/18 18:00 09/02/18 17:59 Dextrose/ Electrolytes 1,000 ml @ 75 mls/hr [id number] IV 08/03/18 16:00 09/02/18 15:59 Digoxin (Lanoxin) 0.25 mg DAILY ORAL 08/03/18 09:00 09/02/18 08:59 08/03/18 09:45 Diltiazem HCl (Cardizem) 30 mg EVERY 8 HOURS ORAL 08/02/18 15:34 09/01/18 15:33 08/03/18 06:24 Non-Formulary Medication (Non-Formulary Med) 1 ea DAILY ORAL 08/04/18 09:00 09/03/18 08:59 UNV Non-Formulary Medication (Non-Formulary Med) 1 ea DAILY ORAL 08/04/18 09:00 09/03/18 08:59 UNV Polyethylene Glycol/ Electrolytes (Nulytely) 4,000 ml ONCE ORAL 08/03/18 14:00 08/03/18 16:00 Prednisone (predniSONE) 10 mg DAILY ORAL 08/04/18 09:00 09/03/18 08:59 Sotalol HCl (Betapace) 80 mg EVERY 12 HOURS ORAL 08/02/18 21:00 09/01/18 20:59 08/03/18 09:44 Tramadol HCl (Ultram) 50 mg Q6H PRN ORAL Moderate Pain (Pain Scale 4-6) 08/03/18 09:30 08/10/18 09:29 08/03/18 11:25 Assessment/Plan Assessment/Plan Hematology/Oncology Cosultation REQ : Parveen Vargas RFC: Anemia, Anal ca Chief Complaint: Palpitations DOS: 08/03/18 HPI Is a 72-year-old female with history of atrial fibrillation. She is currently taking Eliquis. She presents with chief complaint of rapid A. fib. She said that for the last week she fell her heart rate beating fast. Most the time minutes sinus tachycardia on the monitor at home. She thinks the reason for this is because she's being currently treating for MAC with multiple antibiotics. She woke up tonight feeling startle. She fell her heart beating very fast. On the monitor it said possible atrial fibrillation at 160s. She denies any syncope. She denies any chest pain or shortness of breath. Similar symptom in the past. Coded Allergies: DIPHENHYDRAMINE (Verified Allergy, Unknown, 03/26/15) SHELLFISH DERIVED (Verified Allergy, Unknown, 03/26/15) Uncoded Allergies: HUMARA (Allergy, Unknown, 08/02/18) Past Medical History: see triage record, old chart reviewed, HTN, AFib Past Surgical History: other Pertinent Family History: none Social History: Denies: smoking Last Menstrual Period: YUSEF Now: No Immunizations: other Reviewed Nursing Documentation: PMH: Agreed; PSxH: Agreed Hx Hypertension: Yes - RA, Hx COPD: Yes Hx Cancer: Yes - CURED ROS Eye: Denies: eye pain, blurred vision ENT: Denies: ear pain, nose congestion, throat swelling Respiratory: Denies: cough, shortness of breath Cardiovascular: Reports: palpitations; Denies: chest pain Gastrointestinal: Denies: abdominal pain, diarrhea, nausea, vomiting Musculoskeletal: Denies: back pain, joint pain Skin: Denies: rash Neurological: Denies: headache, numbness Endocrine: Denies: increased thirst, increased urine Hematologic/Lymphatic: Denies: easy bruising All Other Systems: negative except mentioned in HPI PE Vital Signs Last 24 Hour Vital Signs Date Time Temp Pulse Resp B/P (MAP) Pulse Ox O2 Delivery O2 Flow Rate FiO2 08/03/18 09:45 75 08/03/18 09:44 75 123/61 08/03/18 09:00 Nasal Cannula 2.0 08/03/18 08:00 98.4 75 21 123/61 (81) 97 08/03/18 07:50 74 08/03/18 06:24 71 08/03/18 04:00 98.4 76 18 128/57 (80) 96 08/03/18 03:54 75 08/03/18 00:00 99.2 78 18 130/61 (84) 97 08/02/18 23:56 79 08/02/18 21:21 155 08/02/18 21:01 145 141/66 08/02/18 21:00 Nasal Cannula 2.0 08/02/18 21:00 99.2 08/02/18 20:46 99.1 08/02/18 20:03 110 08/02/18 20:00 100.5 97 18 144/66 (92) 96 08/02/18 16:00 97 148/96 08/02/18 16:00 98.8 97 18 148/96 (113) 93 08/02/18 15:18 100 vitals with tachycardia Sp02 EP Interpretation: reviewed, normal General Appearance: well appearing, no apparent distress, alert Head: normocephalic, atraumatic Eyes: bilateral eye PERRL, bilateral eye EOMI Neck: full range of motion, supple, no meningismus Respiratory: chest non-tender, lungs clear, normal breath sounds Cardiovascular: no murmur, tachycardia, irregularly irregular Gastrointestinal: normal bowel sounds, non tender Musculoskeletal: back normal, gait/station normal Psychiatric: mood/affect normal Skin: warm/dry Laboratory Tests Test 08/02/18 14:40 08/02/18 22:00 08/03/18 06:50 White Blood Count 9.4 K/UL (4.8-10.8) 11.6 K/UL (4.8-10.8) H Red Blood Count 3.66 M/UL (4.20-5.40) L 3.82 M/UL (4.20-5.40) L Hemoglobin 7.7 G/DL (12.0-16.0) L 8.4 G/DL (12.0-16.0) L Hematocrit 24.9 % (37.0-47.0) L 26.9 % (37.0-47.0) L Mean Corpuscular Volume 68 FL (80-99) L 70 FL (80-99) L Mean Corpuscular Hemoglobin 21.0 PG (27.0-31.0) L 22.0 PG (27.0-31.0) L Mean Corpuscular Hemoglobin Concent 30.9 G/DL (32.0-36.0) L 31.2 G/DL (32.0-36.0) L Red Cell Distribution Width 18.2 % (11.6-14.8) H 19.9 % (11.6-14.8) H Platelet Count 436 K/UL (150-450) 414 K/UL (150-450) Mean Platelet Volume 5.3 FL (6.5-10.1) L 5.6 FL (6.5-10.1) L Neutrophils (%) (Auto) % (45.0-75.0) % (45.0-75.0) Lymphocytes (%) (Auto) % (20.0-45.0) % (20.0-45.0) Monocytes (%) (Auto) % (1.0-10.0) % (1.0-10.0) Eosinophils (%) (Auto) % (0.0-3.0) % (0.0-3.0) Basophils (%) (Auto) % (0.0-2.0) % (0.0-2.0) Differential Total Cells Counted 100 100 Neutrophils % (Manual) 85 % (45-75) H 90 % (45-75) H Lymphocytes % (Manual) 13 % (20-45) L 7 % (20-45) L Monocytes % (Manual) 2 % (1-10) 3 % (1-10) Eosinophils % (Manual) 0 % (0-3) 0 % (0-3) Basophils % (Manual) 0 % (0-2) 0 % (0-2) Band Neutrophils 0 % (0-8) 0 % (0-8) Platelet Estimate Adequate Adequate Platelet Morphology Normal Normal Hypochromasia 1+ 1+ Anisocytosis 1+ 2+ Microcytosis 1+ 1+ Iron Level 8 ug/dL (50-175) L 12 ug/dL (50-175) L Total Iron Binding Capacity 206 ug/dL (250-450) L Percent Iron Saturation 4 % (15-50) L Unsaturated Iron Binding 198 ug/dL (112-346) Lactate Dehydrogenase 195 U/L (81-234) Stool Occult Blood Negative (NEGATIVE) Polychromasia 1+ Magnesium Level 1.9 MG/DL (1.8-2.4) Total Creatine Kinase 44 U/L (26-308) Troponin I 0.033 ng/mL (0.000-0.056) Triglycerides Level 82 MG/DL (30-150) Cholesterol Level 142 MG/DL (< 200) LDL Cholesterol 88 mg/dL (<100) HDL Cholesterol 40 MG/DL (40-60) Cholesterol/HDL Ratio 3.6 (3.3-4.4) Thyroid Stimulating Hormone (TSH) 7.136 uiU/mL (0.358-3.740) Assessment and Recs: # Anal carcinoma - is s/p Gianfranco protocol involving chemotherapy and radiation, currently is disease free --> outpatient management as needed, screening/surveillance --> tumor markers as needed, prn basis # Anemia of chronic disease likely due to chf, other chronic medical issues --> anemia panel has been ordered --> no evidence of hemolysis is noted --> hgb goal>7 # Rapid atrial fibrillation --> eliquis as per cardiology # Acute exacerbation of CHF (congestive heart failure) --> per cardiology evaluation # Tachycardiac The timing of this note does not necessarily reflect the time of the patient was seen Greatly appreciate consultation! Arvind Jain MD Aug 03, 2018 13:05
[2018-08-03] MEDS ORDERED: Nulytely 4L ORAL SCH (14:00)
[2018-08-03 16:00] VITALS: BP 124/63
[2018-08-03] MEDS ORDERED: Bisacodyl EC 5mg tab ORAL SCH (16:00)
[2018-08-03] MEDS: D5 1/2NS w/KCl 20mEq 1,000 ML IV SCH (16:10)
--- NOTE | 2018-08-03 17:30 | Progress Note ---
DATE: 08/03/2018 SUBJECTIVE: This is an elderly white female complaining pain and also her heart rate was high last night , but currently is controlled, sinus rhythm. OBJECTIVE: VITAL SIGNS: Blood pressure is 128/57, pulse 71, no fever. CHEST: Bilaterally clear. CARDIOVASCULAR: Regular rhythm. ABDOMEN: Soft. EXTREMITIES: No CCE. NEUROLOGIC: No focal deficit. LABORATORY DATA: White counts are 12,000, hemoglobin 8.4, hematocrit 26. ASSESSMENT: 1. Atrial fibrillation with rapid ventricular rate. 2. Chronic pain secondary to arthritis. 3. Anemia. 4. Generalized weakness. PLAN: We will hold apixaban. Continue current medical treatment. Waiting for the stress test and GI consult. Continue sotalol. Continue digoxin, Cardizem, and Tylenol. Added Ultram for pain. Cardiology is on the case. Walter Vargas M.D. DR: AAKASH JOB#: [id number] CC:
[2018-08-03] MEDS ORDERED: Brimonidine 0.2% Opth Sol LEFT EYE SCH (18:00)
--- NOTE | 2018-08-03 18:00 | Consultation ---
DATE OF CONSULTATION: 08/03/2018 CONSULTING PHYSICIAN: Nicola Mason M.D. CHIEF COMPLAINT: Anemia. HISTORY OF PRESENT ILLNESS: This is a very pleasant 72-year-old female with past medical history of paroxysmal atrial fibrillation, on Eliquis, presented with acute onset of atrial fibrillation and the patient admitted, was found to be profoundly anemic with hemoglobin of 7 and GI consultation was requested for possible endoscopy and colonoscopy. According to the patient, she had history of anal squamous carcinoma in 2015, status post treatment, has been followed annually, no obvious GI bleeding. Last endoscopy and colonoscopy few years ago, but according to the Cardiology note, the patient needs to have a GI procedure to rule out GI bleeding. So, she can go back on Eliquis. She also has history of severe rheumatoid arthritis for which she was on biologic for a while and she got infection with MAC and now she is off of any of her biologics. PAST MEDICAL HISTORY: 1. Atrial fibrillation. 2. Squamous cell carcinoma of the anus. 3. Severe rheumatoid arthritis. 4. MAC. 5. COPD. 6. Hypertension. 7. History of CVA. ALLERGIES: To shellfish, Humira, and Benadryl. MEDICATIONS: Please see medication reconciliation list. PAST SURGICAL HISTORY: As above. SOCIAL HISTORY: The patient has previous history of smoking, but she stopped. She also used to drink alcohol, but socially. No IV drug abuse. REVIEW OF SYSTEMS: A 10-point review of systems was performed and pertinent positives in HPI. PHYSICAL EXAMINATION: VITAL SIGNS: Temperature is 98.4, pulse is 70, respirations 18, and blood pressure 128/80. HEENT: Normocephalic. Mildly pale conjunctivae. NECK: Supple. No lymphadenopathy. CARDIOVASCULAR: Tachy. Regular rate. Plus S1, S2. LUNGS: Decreased breath sounds bilaterally based on supine exam. ABDOMEN: Soft, nontender. No rebound. No guarding. No peritoneal sign. EXTREMITIES: No cyanosis, no clubbing, no edema. NEUROLOGIC: Nonfocal. LABORATORY DATA: White count is 11.6, hemoglobin 8.4 after 1 unit of blood transfusion, platelet count is 414. Stool OB is pending. Chem-7, iron saturation was very low at 4%. Sodium 142, potassium 3.6. ASSESSMENT AND PLAN: This is a 72-year-old female with severe iron-deficiency anemia. Need for going on anticoagulation for paroxysmal atrial fibrillation. The patient agreed to have an endoscopy and colonoscopy tomorrow. We will plan for tomorrow. We will prep her with Marysol today and schedule for procedure as well. I want to thank Dr. Vargas for this kind referral. Nicola Mason M.D. DR: FIONA JOB#: [id number] CC: Walter Vargas M.D.; Fax#: [phone]
--- NOTE | 2018-08-03 18:00 | NUR ---
NURSE NOTES: Pt. unable to tolerate go-lytely. vomit x 1.
[2018-08-03 20:00] VITALS: BP 163/66
--- NOTE | 2018-08-03 20:00 | NUR ---
NURSE NOTES: Pt awake/alert, breathing easily on 2 lpm nasal cannula, denies SOB but c/o generalized pain due to RA at this time. Pt is currently going through bowel prep with commode at bedside. Vital signs stable with SR @ 67 on monitor. IV access left hand with D5 1/2 NS + 20K running at 75 ml/hr. Friend rooming in with pt. Bed left in low position, side rails up x 2 and call light left near pt's hand.
[2018-08-03] MEDS: SYSTANE BOTH EYES SCH (21:22)
[2018-08-03] MEDS: RESTASIS BOTH EYES SCH (21:22)
[2018-08-03] MEDS: Brimonidine 0.2% Opth Sol LEFT EYE SCH (21:23)
[2018-08-03] MEDS ORDERED: traMADol 50mg tab ORAL PRN (21:45)
[2018-08-04] VITALS (12 sets, daily range): BP systolic 101–149; BP diastolic 55–77
[2018-08-04] MEDS: dilTIAZem HCl 30mg tab ORAL SCH ×3 (05:26→22:58)
[2018-08-04] MEDS: D5 1/2NS w/KCl 20mEq 1,000 ML IV SCH (05:26)
[2018-08-04 06:48] LABS: HEMATOCRIT 28.9 % (37.0-47.0); HEMOGLOBIN 8.9 G/DL (12.0-16.0); MEAN CORPUSCULAR VOLUME 71 FL (80-99); PLATELET COUNT 450 K/UL (150-450); RED BLOOD COUNT 4.09 M/UL (4.20-5.40); RED CELL DISTRIBUTION WIDTH 19.8 % (11.6-14.8); WHITE BLOOD COUNT 9.3 K/UL (4.8-10.8)
[2018-08-04 07:02] LABS: ANION GAP 12 mmol/L (5-15); BLOOD UREA NITROGEN 15 mg/dL (7-18); CALCIUM 8.9 MG/DL (8.5-10.1); CARBON DIOXIDE 21 MMOL/L (21-32); CHLORIDE 102 MMOL/L (98-107); CREATININE 0.7 MG/DL (0.55-1.30); POTASSIUM 3.7 MMOL/L (3.5-5.1); SODIUM 135 MMOL/L (136-145)
--- NOTE | 2018-08-04 07:11 | NUR ---
NURSE NOTES: Received update bedside report from Jocelyn BARNETT. Pt. up sitting at the edge of the bed. A/O x 4. No sign of distress. C/O moderate to severe aches and pain due to her arthritis. Pt. had episode of vomiting x 2-3, diarrhea per previous shift. IV at left hand #22g. in placed patent/intact running D5 1/2 NS with 20meq. at 75cc/hr. Bed in low position, locked. Call light within reach. Will cont. to monitor. Addendum: 08/04/18 at 0716 by LIDA FRAUSTO RN, RN Received report from Smith BARNETT. Addendum: 08/04/18 at 1114 by LIDA FRAUSTO RN, RN Per pt. she denies vomiting episode last night. Informed Smith BARNETT that pt. denies vomiting episode.
[2018-08-04] MEDS: Norco 5mg/325mg tab ORAL PRN ×3 (08:49→23:34)
[2018-08-04] MEDS: Sotalol 80mg tab ORAL SCH ×2 (08:51→21:05)
[2018-08-04] MEDS: Brimonidine 0.2% Opth Sol LEFT EYE SCH ×2 (08:52→21:12)
[2018-08-04] MEDS: RESTASIS BOTH EYES SCH ×2 (08:52→21:03)
--- NOTE | 2018-08-04 09:32 | Cardiac Electrophysiology PN ---
Assessment/Plan Problem List: (1) Anemia (2) EUGENIE (mycobacterium avium-intracellulare) infection (3) COPD (chronic obstructive pulmonary disease) (4) Rapid atrial fibrillation Status: stable, progressing Status Narrative Mrs. Woody is tolerating sotalol so far. She has not had further AF on telemetry eKG is pending Assessment/Plan Will continue sotalol 80 mg bid and monitor QTc , rhythm and monitor for any bronchospasm. Continue cardizem. ECHO w/ normal LV systolic function, + diastolic dysfunction. Aortic sclerosis Will d/w Dr. Rosas, pulmonary, re: MAC treatment and antiarrhythmic drug potential interactions. UGI/ LGI endoscopy planned for today to evaluate anemia, gi bleed. Stable from arrhythmia standpoint for these procedures. Subjective ROS Limited/Unobtainable: No Subjective Cardiac EP Mrs. Woody c/o pain from RA. No palpitations or cp Objective Last 24 Hour Vital Signs Date Time Temp Pulse Resp B/P (MAP) Pulse Ox O2 Delivery O2 Flow Rate FiO2 08/04/18 08:52 77 08/04/18 08:51 77 142/70 08/04/18 08:00 98.1 77 21 142/70 (94) 96 08/04/18 05:26 73 149/71 08/04/18 04:00 73 08/04/18 04:00 100.8 86 26 136/77 (96) 92 08/04/18 00:00 97.9 82 18 149/71 (97) 97 08/03/18 21:29 67 162/63 08/03/18 21:23 67 124/63 08/03/18 21:00 Nasal Cannula 2.0 08/03/18 20:00 67 08/03/18 20:00 97.5 71 20 163/66 (98) 99 08/03/18 16:00 98.0 67 19 124/63 (83) 98 08/03/18 15:43 90 08/03/18 14:16 70 129/61 08/03/18 12:00 98.4 71 20 125/56 (79) 94 08/03/18 11:52 69 08/03/18 09:45 75 08/03/18 09:44 75 123/61 General Appearance: WD/WN, alert, mild distress Neck: non-tender, supple, no JVD Rhythm: NSR Cardiovascular: normal rate, regular rhythm, no gallop/murmur Respiratory/Chest: other - dec BS bilat. no wheezing or rales Abdomen: normal bowel sounds, non tender, soft Extremities: other - ulnar deformities of hands bilat Intake and Output 08/03/18 08/04/18 19:00 07:00 Intake Total 315 ml 675 ml Balance 315 ml 675 ml Intake Oral 240 ml IV Total 75 ml 675 ml # Bowel Movements 1 4 Laboratory Tests Test 08/04/18 06:20 White Blood Count 9.3 K/UL (4.8-10.8) Red Blood Count 4.09 M/UL (4.20-5.40) L Hemoglobin 8.9 G/DL (12.0-16.0) L Hematocrit 28.9 % (37.0-47.0) L Mean Corpuscular Volume 71 FL (80-99) L Mean Corpuscular Hemoglobin 21.7 PG (27.0-31.0) L Mean Corpuscular Hemoglobin Concent 30.8 G/DL (32.0-36.0) L Red Cell Distribution Width 19.8 % (11.6-14.8) H Platelet Count 450 K/UL (150-450) Mean Platelet Volume 5.3 FL (6.5-10.1) L Neutrophils (%) (Auto) % (45.0-75.0) Lymphocytes (%) (Auto) % (20.0-45.0) Monocytes (%) (Auto) % (1.0-10.0) Eosinophils (%) (Auto) % (0.0-3.0) Basophils (%) (Auto) % (0.0-2.0) Differential Total Cells Counted 100 Neutrophils % (Manual) 87 % (45-75) H Lymphocytes % (Manual) 8 % (20-45) L Monocytes % (Manual) 2 % (1-10) Eosinophils % (Manual) 3 % (0-3) Basophils % (Manual) 0 % (0-2) Band Neutrophils 0 % (0-8) Nucleated Red Blood Cells 2 /100 WBC Platelet Estimate Adequate Platelet Morphology Normal Hypochromasia 2+ Anisocytosis 2+ Microcytosis 2+ Sodium Level 135 MMOL/L (136-145) L Potassium Level 3.7 MMOL/L (3.5-5.1) Chloride Level 102 MMOL/L (98-107) Carbon Dioxide Level 21 MMOL/L (21-32) Anion Gap 12 mmol/L (5-15) Blood Urea Nitrogen 15 mg/dL (7-18) Creatinine 0.7 MG/DL (0.55-1.30) Estimat Glomerular Filtration Rate mL/min (>60) Glucose Level 106 MG/DL (74-106) Calcium Level 8.9 MG/DL (8.5-10.1) Carcinoembryonic Antigen Pending Sandhya Turner MD Aug 04, 2018 09:32
--- NOTE | 2018-08-04 10:00 | Consultation ---
DATE OF CONSULTATION: 08/02/2018 CARDIOLOGY CONSULTATION CONSULTING PHYSICIAN: Luis Escobar M.D. REFERRING PHYSICIAN: Raul Vargas M.D. REASON FOR REFERRAL: Atrial fibrillation. HISTORY OF PRESENT ILLNESS: This is an elderly female who is usually followed by Dr. Boone Jackson and Dr. Jesus Farooq who presented to the hospital because of episode of atrial fibrillation. She has a history of atrial fibrillation previous episode approximately 3 to 4 years ago according to the patient, in the middle of the night got startled, woke up, and found herself being fast. She was last seen by Dr. Jackson about a week ago or so, and at that time she reportedly was in sinus rhythm. Nevertheless, she felt the episode of palpitations last night, she felt similar to atrial fibrillation and summoned the paramedics and brought her to the emergency room at [facility] because of atrial fibrillation with rapid ventricular response. A dose of Cardizem was given in the emergency room, and she converted, and she was admitted to the hospital floor, telemetry lara when she has had recurrence of atrial fibrillation dose of Cardizem was given, and again she converted to sinus rhythm. She really has not had any pain, pressure, tightness, or heaviness in her chest whatsoever. She does have shortness of breath only on climbing up stairs. She is not very active because of limitations to move from rheumatoid arthritis. She is able to move around from room to room in her house that does not cause her to be short of breath or chest pains, but only if she goes up the stairs, she gets shortness of breath. There is no PND or orthopnea. She does feel palpitations as mentioned above. No dizziness or syncope or near-syncope. Her past medical history obtained from the data from [facility], is recent evaluation by Dr. Farooq and was diagnosed with MAC infection of the lung and has been just recently started with Dr. Farooq on MAC medications, rifampin and among others. There has been concern about possibility of drug interactions and apparently Rythmol and rifampin felt not to be a major issue, and for rheumatoid arthritis, reportedly stopped Orencia. PAST MEDICAL HISTORY: According to the chart is positive with rheumatoid arthritis and osteoporosis. As mentioned, she has had remote history of atrial fibrillation. She has a history of pulmonary nodules, felt to be possibly related to rheumatoid arthritis, history of sigmoid colon cancer, status post resection and chemo in 2014, and pseudogout and scoliosis of the thoracic spine. She also has a diagnosis of C. difficile colitis, COPD, atrial fibrillation, paroxysmal in nature, Varicella zoster infection, history of appendectomy, Darrach resection. She has had bilateral cataract extraction, finger debridement, GI biopsy, and synovectomy. SOCIAL HISTORY: She used to drink two caffeine per day. Not employed. She does not smoke at this time. She quit that in the 80s. She does drink alcoholic beverages, although she stopped doing that because of medications that she just recently started and she is without children. She is a retired 2 cats at home, and [id number] history of smoking that she again quit in . REVIEW OF SYSTEMS: GASTROINTESTINAL: She denies any nausea, vomiting, diarrhea, or constipation. She has been told that she may have some bloody stools. She is usually followed closely every six months by a colorectal surgeon. GENITOURINARY: She does not have problems. PULMONARY: She does have cough. No wheezing. CONSTITUTIONAL: No fever, chills, or night sweats. NEUROLOGICAL: She has numbness and tingling sensation in the toes. PHYSICAL EXAMINATION: GENERAL: Shows to be an elderly female, appears relatively disabled because of finger and hand abnormalities secondary to rheumatoid arthritis. NECK: Supple. LUNGS: Decreased breath sounds noted bilaterally. CARDIAC: Regular rate and rhythm. No heaves, thrills, or gallops noted. ABDOMEN: Soft, nontender. Positive bowel sounds. EXTREMITIES: There is no clubbing or cyanosis, nor is there any edema. NEUROLOGICAL: She is awake, alert, and responsive. LABORATORY AND DIAGNOSTIC DATA: Her laboratory values during this hospitalization, she has had an EKG when she came into the hospital that showed evidence of atrial fibrillation with rapid ventricular response and nonspecific T-wave changes were noted. There are Q waves in lead aVL only. She has had a chest x-ray that showed mild edema, left effusion, low lung volumes, and increased central and interstitial lung markings being noted on that EKG. White count of 8.4, hemoglobin 7.1, and platelet count of 387. Her sodium is 142, potassium 3.6, chloride 105, bicarbonate 25, BUN 20, creatinine 1.0, and glucose of 104. Liver function tests are otherwise unremarkable. Troponins on two separate occasions have been negative. Her proBNP of 5200 almost with albumin of 2.6. Coags, INR 1.2 and PTT of 33. Urinalysis is fairly unremarkable. She has had a repeat EKG that has shown sinus rhythm. There is some T-wave inversions in lead III, aVF, V4, V5, and V6 and in direct comparison with the last EKG that I [facility] in May 2016 at which time she had the atrial fibrillation, those T-wave inversion in the lateral leads appear to be new, but this was during an episode of atrial fibrillation. Previously, her EKG, however, in March 2016 had shown some biphasic T-waves in III and AVF, but biphasic T-waves in V5 and V6 and V4 seem to be relatively new. ASSESSMENT AND PLAN: 1. Paroxysmal episodes of atrial fibrillation. 2. Anemia. 3. MAC infection, recently diagnosed, on antibiotic therapy. 4. Rheumatoid arthritis, severe and relatively disabling. 5. History of sigmoid colon anal cancer, status post resection. 6. History of pseudogout. Dr. Vargas, this patient was seen in cardiac consultation. The patient has had two episodes of atrial fibrillation in the past 24 hours or so. Both these have responded to intravenous doses of diltiazem. She is on Rythmol therapy, however, and she does have some T-wave changes in her lateral leads and I am hesitant because of that to recommend resumption of Rythmol. She has some anemia that needs to be re-evaluated to see if that is true level of anemia and stool studies to be checked to make sure there is no evidence of GI bleeding. Repeat cardiac enzymes will be performed and echocardiogram will be performed to see if there is any left ventricular systolic function. Otherwise, we will try to see if we can keep her on some Cardizem to prevent her heart rate from becoming too fast even if she does have breakthrough atrial fibrillation at this time. The concern is whether the interaction between the recently started antibiotic therapy for the MAC may be causing the Rythmol to be less effective and thus causing more episodes of atrial fibrillation and one may consider switching the patient to amiodarone therapy in light of everything that is ongoing. I have got a call to Dr. Boone Jackson to see about whether EKG changes that are described are new compared to his office EKGs and to see if he agrees with starting the amiodarone therapy. Luis Escobar M.D. DR: KIRTI JOB#: [id number] CC:
--- NOTE | 2018-08-04 10:32 | Anethesia Preoperative Eval ---
Anesthesia Pre-op PMH/ROS General Date of Evaluation: Aug 04, 2018 Anesthesiologist: Ramon ASA Score: ASA 3 Mallampati Score Class I : Soft palate, uvula, fauces, pillars visible Class II: Soft palate, uvula, fauces visible Class III: Soft palate, base of uvula visible Class IV: Only hard plate visible Mallampati Classification: Class II Surgeon: Marlon Diagnosis: ? GI bleed Surgical Procedure: EGD and colonoscopy Anesthesia History: none Family History: no anesthesia problems Allergies: Coded Allergies: DIPHENHYDRAMINE (Verified Allergy, Unknown, 03/26/15) SHELLFISH DERIVED (Verified Allergy, Unknown, 03/26/15) Uncoded Allergies: HUMARA (Allergy, Unknown, 08/02/18) Medications: see eMAR Patient NPO?: Yes NPO Date: Aug 03, 2018 NPO Time: 22:00 Past Medical History Cardiovascular: Reports: HTN, arrhythmia - aib, other - CHF ; Denies: CAD, LA, valve dz Pulmonary: Reports: COPD; Denies: asthma, VIRIDIANA, other Gastrointestinal/Genitourinary: Reports: GERD; Denies: CRI, ESRD, other Neurologic/Psychiatric: Denies: dementia, CVA, depression/anxiety, TIA, other Endocrine: Denies: DM, hypothyroidism, steroids, other HEENT: Denies: cataract (L), cataract (R), glaucoma, [place] (L), [place] (R), other Hematology/Immune: Reports: anemia - acute on chronic; Denies: DVT, bleeding disorder, other Musculoskeletal/Integumentary: Reports: other - RA; Denies: OA, RA, DJD, DDD, edema PSxH Narrative: lap appy, hand and wrist sx Anesthesia Pre-op Phys. Exam Physician Exam Last Vital Signs Date Time Temp Pulse Resp B/P (MAP) Pulse Ox O2 Delivery O2 Flow Rate FiO2 08/04/18 08:52 77 08/04/18 08:51 142/70 08/04/18 08:00 98.1 21 96 08/03/18 21:00 Nasal Cannula 2.0 Constitutional: NAD Cardiovascular: RRR Respiratory: CTA Airway Exam Mallampati Score: Class II MO: limited ROM: limited Anesthesia Pre-op A/P Labs Hematology Test 08/04/18 06:20 White Blood Count 9.3 K/UL (4.8-10.8) Red Blood Count 4.09 M/UL (4.20-5.40) L Hemoglobin 8.9 G/DL (12.0-16.0) L Hematocrit 28.9 % (37.0-47.0) L Mean Corpuscular Volume 71 FL (80-99) L Mean Corpuscular Hemoglobin 21.7 PG (27.0-31.0) L Mean Corpuscular Hemoglobin Concent 30.8 G/DL (32.0-36.0) L Red Cell Distribution Width 19.8 % (11.6-14.8) H Platelet Count 450 K/UL (150-450) Mean Platelet Volume 5.3 FL (6.5-10.1) L Neutrophils (%) (Auto) % (45.0-75.0) Lymphocytes (%) (Auto) % (20.0-45.0) Monocytes (%) (Auto) % (1.0-10.0) Eosinophils (%) (Auto) % (0.0-3.0) Basophils (%) (Auto) % (0.0-2.0) Differential Total Cells Counted 100 Neutrophils % (Manual) 87 % (45-75) H Lymphocytes % (Manual) 8 % (20-45) L Monocytes % (Manual) 2 % (1-10) Eosinophils % (Manual) 3 % (0-3) Basophils % (Manual) 0 % (0-2) Band Neutrophils 0 % (0-8) Nucleated Red Blood Cells 2 /100 WBC Platelet Estimate Adequate Platelet Morphology Normal Hypochromasia 2+ Anisocytosis 2+ Microcytosis 2+ Chemistry Test 08/04/18 06:20 Sodium Level 135 MMOL/L (136-145) L Potassium Level 3.7 MMOL/L (3.5-5.1) Chloride Level 102 MMOL/L (98-107) Carbon Dioxide Level 21 MMOL/L (21-32) Anion Gap 12 mmol/L (5-15) Blood Urea Nitrogen 15 mg/dL (7-18) Creatinine 0.7 MG/DL (0.55-1.30) Estimat Glomerular Filtration Rate mL/min (>60) Glucose Level 106 MG/DL (74-106) Calcium Level 8.9 MG/DL (8.5-10.1) Carcinoembryonic Antigen Pending Studies Pre-op Studies: EKG - afib Risk Assessment & Plan Assessment: ASA III Plan: MAC Pre-Antibiotics Drug: N/A Nirali Alston MD Aug 04, 2018 10:32
--- NOTE | 2018-08-04 10:38 | Pre-Procedure Note/Attestation ---
Pre-Procedure Note/Attestation Complete Prior to Procedure Planned Procedure: not applicable Procedure Narrative: esophagogastroduodenoscopy and colonoscopy Indications for Procedure Pre-Operative Diagnosis: anemia Attestation I attest that I discussed the nature of the procedure; its benefits; risks and complications; and alternatives (and the risks and benefits of such alternatives ), prior to the procedure, with the patient (or the patient's legal home office representative). I attest that, if there was a reasonable possibility of needing a blood transfusion, the patient (or the patient's legal home office representative) was given the [facility] standardized written summary, pursuant to the Paulino Glenda Blood Safety Act ([place] Health and Safety Code # 1645, as amended). I attest that I re-evaluated the patient just prior to the surgery and that there has been no change in the patient's H&P, except as documented below: Nicola Mason MD Aug 04, 2018 10:38
--- NOTE | 2018-08-04 10:40 | NUR ---
NURSE NOTES: Pt. off the unit for colonoscopy/EGD procedure. Pt. left at stable condition and SR on monitor.
--- NOTE | 2018-08-04 10:44 | NUR ---
P.T Note: P.T evaluation deferred. Pt on her way out to procedure. Will follow up following procedure. Conferred with RN.
[2018-08-04] MEDS ORDERED: NS 500ML IVPB ONE (10:50)
[2018-08-04] MEDS ORDERED: LR 1000ml ONE (11:00)
[2018-08-04] MEDS ORDERED: Propofol 200mg/20ml IV ONE (11:00)
[2018-08-04] MEDS ORDERED: Lidocaine 1% MPF 10mg/ml 5ml ONE (11:00)
--- NOTE | 2018-08-04 11:15 | Immediate Post-Op Evaluation ---
Immediate Post-Op Evalulation Immediate Post-Op Evalulation Procedure: EGD and colonoscopy Date of Evaluation: Aug 04, 2018 Time of Evaluation: 11:39 IV Fluids: 400 Blood Products: 0 Estimated Blood Loss: 0 Urinary Output: 0 Blood Pressure Systolic: 107 Blood Pressure Diastolic: 59 Pulse Rate: 69 Respiratory Rate: 15 O2 Sat by Pulse Oximetry: 90 Temperature (Fahrenheit): 97.7 Pain Score (1-10): 0 Nausea: No Vomiting: No Complications 0 Patient Status: awake, reacts, patent, none Hydration Status: adequate Drug: N/A Nirali Alston MD Aug 04, 2018 11:15
--- NOTE | 2018-08-04 11:16 | 48 Hour Post Anesthesia Eval ---
Post Anesthesia Evaluation Procedure: EGD and colonoscopy Date of Evaluation: Aug 04, 2018 Airway: patent Nausea: No Vomiting: No Pain Intensity: 0 Hydration Status: adequate Cardiopulmonary Status: at baseline Mental Status/LOC: patient returned to baseline Post-Anesthesia Complications: 0 Follow-up care needed: N/A - further care as per Nirali Hernandez MD Aug 04, 2018 11:16
--- NOTE | 2018-08-04 11:29 | Endoscopy Procedure Note ---
Endoscopy Procedure Note General Indication for Procedure: anemia Procedures Performed: EGD, colonoscopy Operative Findings/Diagnosis: gastritis, hemorrhoids Specimen: yes Pt Tolerated Procedure Well: Yes Estimated Blood Loss: none Anesthesia Anesthesiologist: carmen Anesthesia: MAC Inserted Devices Implant(s) used?: No Quality Quality of Bowel Preparation: Excellent Was there any complications?: No GI Core Measures 50 yrs or older w/o bx or poly: Not Applicable 10yrs. F/U not recommended: Not Applicable Nicola Mason MD Aug 04, 2018 11:29
--- NOTE | 2018-08-04 12:29 | NUR ---
NURSE NOTES: Received telephone report from Deysi BARNETT. from surgery.
--- NOTE | 2018-08-04 12:30 | NUR ---
NURSE NOTES: Pt. s/p colonoscopy/EGD procedure. Pt. tolerated well. Pt. stable.
--- NOTE | 2018-08-04 15:45 | Procedure Note ---
DATE OF PROCEDURE: 08/04/2018 SURGEON: Nicola Mason M.D. REFERRING PHYSICIAN: Raul Vargas M.D. PROCEDURE: Upper endoscopy with biopsy and colonoscopy. ANESTHESIA: Per Dr. Navarro. INSTRUMENT: Olympus adult flexible upper endoscope and colonoscope. INDICATION: Anemia, stool OB positive, and rule out GI bleeding. REASON FOR PROCEDURE: The procedure, risks, benefits, and possible consequences, including hemorrhage, aspiration, perforation and infection, and alternative treatments, were explained to the patient/legal guardian by Dr. Nicola Mason and the patient/legal guardian understood and accepted these risks. PROCEDURE IN DETAIL: After informed consent was obtained and the patient was adequately sedated, Olympus upper endoscope was advanced from the mouth into the second portion of the duodenum and retroflexion was performed in the stomach. The patient had diffuse gastritis. Random biopsy from antrum and body was obtained to rule out H. pylori infection. Otherwise, the rest of upper endoscopic examination was within normal limits. There was no evidence of any active upper GI bleeding at this time. At this time, the upper endoscope was retrieved. The patient was turned over for colonoscopy. First, rectal exam was performed, which showed positive for internal hemorrhoids. Then, the scope was advanced from the rectum into the cecum documented by appendiceal orifice, ileocecal valve, and right upper quadrant palpation. Quality of prep was very good. The patient had a challenging colonoscopy, getting out of the sigmoid was very difficult and convoluted, but we managed to pass through. No evidence of any obvious lower GI bleeding. No polyps and no diverticulosis. Retroflexion of rectum showed evidence of medium-sized internal hemorrhoids. SUMMARY OF FINDINGS: 1. Gastritis, status post biopsy. 2. Internal hemorrhoids. RECOMMENDATION: 1. Follow up biopsy results and treat accordingly. 2. Resume diet. 3. Follow labs. 4. Okay to anticoagulate for now for cardiac issues. I want to thank Dr. Vargas for this kind referral. Nicola Mason M.D. DR: SEAN JOB#: [id number] CC:
--- NOTE | 2018-08-04 17:06 | Cardiology Progress Note ---
Assessment/Plan Assessment/Plan paf ra anemia hs of anal cancer iron deff keep off rythmol on sotalol remains in sinus message left for dr saunders 2/2 stool ob neg however iron level low gi performed ldh normal keep on eliquis ekg not yet avialbe will reorder off norvasc on cardizem seems ivette tolerating hold off on treatment for mac until anemia fib is stabilized home tomorrow ? fu with pmd no calls back yet form dr saunders no need for dig will dc off dc meds Subjective Cardiovascular: Denies: chest pain, lightheadedness Gastrointestinal/Abdominal: Denies: abdominal pain Genitourinary: Denies: burning Objective Last 24 Hour Vital Signs Date Time Temp Pulse Resp B/P (MAP) Pulse Ox O2 Delivery O2 Flow Rate FiO2 08/04/18 16:00 98.2 80 21 134/57 (82) 93 08/04/18 15:10 80 08/04/18 14:46 81 150/62 08/04/18 12:48 97.5 72 21 128/57 (80) 100 08/04/18 12:25 98.3 74 19 145/61 96 Nasal Cannula 3 08/04/18 12:15 75 17 148/62 95 Nasal Cannula 3 08/04/18 12:00 71 19 126/55 95 Nasal Cannula 3 08/04/18 11:44 74 13 122/60 96 Nasal Cannula 3 08/04/18 11:39 72 21 117/55 95 Nasal Cannula 3 08/04/18 11:38 69 15 90 08/04/18 11:34 97.7 69 15 101/59 90 Nasal Cannula 3 08/04/18 11:31 70 08/04/18 09:00 Nasal Cannula 2.0 08/04/18 08:52 77 08/04/18 08:51 77 142/70 08/04/18 08:00 98.1 77 21 142/70 (94) 96 08/04/18 07:38 78 08/04/18 05:26 73 149/71 08/04/18 04:00 73 08/04/18 04:00 100.8 86 26 136/77 (96) 92 08/04/18 00:00 97.9 82 18 149/71 (97) 97 08/03/18 21:29 67 162/63 08/03/18 21:23 67 124/63 08/03/18 21:00 Nasal Cannula 2.0 08/03/18 20:00 67 08/03/18 20:00 97.5 71 20 163/66 (98) 99 General Appearance: no apparent distress, alert Neck: supple Cardiovascular: normal rate, regular rhythm Respiratory/Chest: decreased breath sounds Abdomen: normal bowel sounds, non tender, soft Extremities: no swelling Intake and Output 08/03/18 08/04/18 18:59 06:59 Intake Total 240 ml 750 ml Balance 240 ml 750 ml Intake Oral 240 ml IV Total 750 ml # Bowel Movements 1 4 Laboratory Tests Test 08/04/18 06:20 White Blood Count 9.3 K/UL (4.8-10.8) Red Blood Count 4.09 M/UL (4.20-5.40) L Hemoglobin 8.9 G/DL (12.0-16.0) L Hematocrit 28.9 % (37.0-47.0) L Mean Corpuscular Volume 71 FL (80-99) L Mean Corpuscular Hemoglobin 21.7 PG (27.0-31.0) L Mean Corpuscular Hemoglobin Concent 30.8 G/DL (32.0-36.0) L Red Cell Distribution Width 19.8 % (11.6-14.8) H Platelet Count 450 K/UL (150-450) Mean Platelet Volume 5.3 FL (6.5-10.1) L Neutrophils (%) (Auto) % (45.0-75.0) Lymphocytes (%) (Auto) % (20.0-45.0) Monocytes (%) (Auto) % (1.0-10.0) Eosinophils (%) (Auto) % (0.0-3.0) Basophils (%) (Auto) % (0.0-2.0) Differential Total Cells Counted 100 Neutrophils % (Manual) 87 % (45-75) H Lymphocytes % (Manual) 8 % (20-45) L Monocytes % (Manual) 2 % (1-10) Eosinophils % (Manual) 3 % (0-3) Basophils % (Manual) 0 % (0-2) Band Neutrophils 0 % (0-8) Nucleated Red Blood Cells 2 /100 WBC Platelet Estimate Adequate Platelet Morphology Normal Hypochromasia 2+ Anisocytosis 2+ Microcytosis 2+ Sodium Level 135 MMOL/L (136-145) L Potassium Level 3.7 MMOL/L (3.5-5.1) Chloride Level 102 MMOL/L (98-107) Carbon Dioxide Level 21 MMOL/L (21-32) Anion Gap 12 mmol/L (5-15) Blood Urea Nitrogen 15 mg/dL (7-18) Creatinine 0.7 MG/DL (0.55-1.30) Estimat Glomerular Filtration Rate mL/min (>60) Glucose Level 106 MG/DL (74-106) Calcium Level 8.9 MG/DL (8.5-10.1) Carcinoembryonic Antigen Pending Luis Escobar MD Aug 04, 2018 17:06
--- NOTE | 2018-08-04 18:33 | General Progress Note ---
Assessment/Plan Assessment/Plan Assessment/Recommendations # Anal carcinoma - is s/p Gianfranco protocol involving chemotherapy and radiation, currently is disease free --> outpatient management as needed, screening/surveillance --> tumor markers as needed, prn basis # Anemia of chronic disease likely due to chf, other chronic medical issues --> anemia panel has been ordered --> no evidence of hemolysis is noted --> hgb goal>7 # Rapid atrial fibrillation --> eliquis as per cardiology # Acute exacerbation of CHF (congestive heart failure) --> per cardiology evaluation # Tachycardiac The timing of this note does not necessarily reflect the time of the patient was seen Greatly appreciate consultation! Subjective Constitutional: Denies: no symptoms, chills, diaphoresis, fever, malaise, weakness, other HEENT: Denies: no symptoms, eye pain, blurred vision, tearing, double vision, ear pain, ear discharge, nose pain, nose congestion, throat pain, throat swelling, mouth pain, mouth swelling, other Cardiovascular: Denies: no symptoms, chest pain, edema, irregular heart rate, lightheadedness, palpitations, syncope, other Respiratory: Denies: no symptoms, cough, orthopnea, shortness of breath, SOB with excertion, SOB at rest, sputum, stridor, wheezing, other Gastrointestinal/Abdominal: Denies: no symptoms, abdomen distended, abdominal pain, black stools, tarry stools, blood in stool, constipated, diarrhea, difficulty swallowing, nausea, poor appetite, poor fluid intake, rectal bleeding , vomiting, other Genitourinary: Denies: no symptoms, burning, discharge, frequency, flank pain, hematuria, incontinence, pain, urgency, other Neurologic/Psychiatric: Denies: no symptoms, anxiety, depressed, emotional problems, headache, numbness, paresthesia, pre-existing deficit, seizure, tingling, tremors, weakness, other Endocrine: Denies: no symptoms, excessive sweating, flushing, intolerance to cold, intolerance to heat, increased hunger, increased thirst, increased urine, unexplained weight gain, unexplained weight loss, other Hematologic/Lymphatic: Denies: no symptoms, anemia, easy bleeding, easy bruising, other Allergies: Coded Allergies: DIPHENHYDRAMINE (Verified Allergy, Unknown, 03/26/15) SHELLFISH DERIVED (Verified Allergy, Unknown, 03/26/15) Uncoded Allergies: HUMARA (Allergy, Unknown, 08/02/18) Subjective 08/04: Seen by bedside, awake, comfortable, hgb 8.9, EGD and colonoscopy today. Objective Last 24 Hour Vital Signs Date Time Temp Pulse Resp B/P (MAP) Pulse Ox O2 Delivery O2 Flow Rate FiO2 08/04/18 16:00 98.2 80 21 134/57 (82) 93 08/04/18 15:10 80 08/04/18 14:46 81 150/62 08/04/18 12:48 97.5 72 21 128/57 (80) 100 08/04/18 12:25 98.3 74 19 145/61 96 Nasal Cannula 3 08/04/18 12:15 75 17 148/62 95 Nasal Cannula 3 08/04/18 12:00 71 19 126/55 95 Nasal Cannula 3 08/04/18 11:44 74 13 122/60 96 Nasal Cannula 3 08/04/18 11:39 72 21 117/55 95 Nasal Cannula 3 08/04/18 11:38 69 15 90 08/04/18 11:34 97.7 69 15 101/59 90 Nasal Cannula 3 08/04/18 11:31 70 08/04/18 09:00 Nasal Cannula 2.0 08/04/18 08:52 77 08/04/18 08:51 77 142/70 08/04/18 08:00 98.1 77 21 142/70 (94) 96 08/04/18 07:38 78 08/04/18 05:26 73 149/71 08/04/18 04:00 73 08/04/18 04:00 100.8 86 26 136/77 (96) 92 08/04/18 00:00 97.9 82 18 149/71 (97) 97 08/03/18 21:29 67 162/63 08/03/18 21:23 67 124/63 08/03/18 21:00 Nasal Cannula 2.0 08/03/18 20:00 67 08/03/18 20:00 97.5 71 20 163/66 (98) 99 Intake and Output 08/03/18 08/04/18 18:59 06:59 Intake Total 240 ml 750 ml Balance 240 ml 750 ml Intake Oral 240 ml IV Total 750 ml # Bowel Movements 1 4 Laboratory Tests 2/4/19 06:20: White Blood Count 9.3, Red Blood Count 4.09L, Hemoglobin 8.9L, Hematocrit 28.9L , Mean Corpuscular Volume 71L, Mean Corpuscular Hemoglobin 21.7L, Mean Corpuscular Hemoglobin Concent 30.8L, Red Cell Distribution Width 19.8H, Platelet Count 450, Mean Platelet Volume 5.3L, Neutrophils (%) (Auto) , Lymphocytes (%) (Auto) , Monocytes (%) (Auto) , Eosinophils (%) (Auto) , Basophils (%) (Auto) , Differential Total Cells Counted 100, Neutrophils % ( Manual) 87H, Lymphocytes % (Manual) 8L, Monocytes % (Manual) 2, Eosinophils % ( Manual) 3, Basophils % (Manual) 0, Band Neutrophils 0, Nucleated Red Blood Cells 2, Platelet Estimate Adequate, Platelet Morphology Normal, Hypochromasia 2 +, Anisocytosis 2+, Microcytosis 2+, Sodium Level 135L, Potassium Level 3.7, Chloride Level 102, Carbon Dioxide Level 21, Anion Gap 12, Blood Urea Nitrogen 15, Creatinine 0.7, Estimat Glomerular Filtration Rate , Glucose Level 106, Calcium Level 8.9, Carcinoembryonic Antigen [Pending] Height (Feet): 5 Height (Inches): 3.00 Weight (Pounds): 114 Objective Sp02 EP Interpretation: reviewed, normal General Appearance: well appearing, no apparent distress, alert Head: normocephalic, atraumatic Eyes: bilateral eye PERRL, bilateral eye EOMI Neck: full range of motion, supple, no meningismus Respiratory: chest non-tender, lungs clear, normal breath sounds Cardiovascular: no murmur, tachycardia, irregularly irregular Gastrointestinal: normal bowel sounds, non tender Musculoskeletal: back normal, gait/station normal Arvind Jain MD Aug 04, 2018 18:32
--- NOTE | 2018-08-04 19:21 | NUR ---
HAND-OFF: Report given to Yasir RN. Pt. remain stable.
--- NOTE | 2018-08-04 19:22 | NUR ---
NURSE NOTES: Received report from William Grimaldo RN. Patient in bed AAO x4 able to verbally communicate with no difficulty. No complaints of acute pain at this time, kept clean, dry, and comfortable in bed. IV line intact and patent SL. Cardiac monitoring in place per protocol and history and current DX of AFIB RVR (sustained). Safety precaution in place; siderails x3 up, call light within reach, bed in lowest position, brakes and alarm on at all times. Needs and wants anticipated and attended, will continue plan of care and monitor for any changes noted
--- NOTE | 2018-08-04 19:30 | Progress Note ---
DATE: 08/04/2018 SUBJECTIVE: This is an elderly female who is still not feeling well, and complaining pain 10/10 and her heart rate is up and down, still heart rate is uncontrolled due to the atrial fibrillation and the patient is seen on the bedside physical therapy. OBJECTIVE: VITAL SIGNS: Blood pressure 142/70, pulse 77, no fever. CHEST: Bilaterally clear. CARDIOVASCULAR: Irregular rhythm. No gallop. No murmur. ABDOMEN: Soft. EXTREMITIES: No CCE. NEUROLOGIC: Generalized weakness. LABORATORY EXAMINATION: Her hemoglobin is 8.9 from 7.1, hematocrit 29, platelets are 450. Chemistry panel, sodium 135, potassium 3.6, BUN 15, creatinine 0.7, glucose 106. TSH was 7.136. ASSESSMENT AND PLAN: 1. Atrial fibrillation with rapid ventricular rate. 2. Chronic severe arthritis. 3. Coagulopathy. 4. Anemia. The patient is currently for chronic pain, it is worsening. The patient was added hydrocodone this morning. Tramadol was not working. We will continue her prednisone, added sotalol edge setter also added digoxin and Cardizem. Continue current treatment. Walter Vargas M.D. DR: AAKASH JOB#: [id number] CC:
[2018-08-04] MEDS: SYSTANE BOTH EYES SCH (21:03)
[2018-08-05] VITALS: BP 144/82
--- NOTE | 2018-08-05 02:22 | NUR ---
NURSE NOTES: Patient in bed asleep with friend at bedside. No S/S of acute distress at this time. Will continue plan of care and monitor for any changes noted
[2018-08-05 04:00] VITALS: BP 140/62
--- NOTE | 2018-08-05 04:50 | NUR ---
NURSE NOTES: Noted suspected Vtach 6 spikes on cardiac exercise specialist, seen patient and is in bed asleep. EKG tracing ordered and done. Will notify Provider Relations Specialist, MD Carlo. in the morning. Will endorse to next shift
[2018-08-05] MEDS: dilTIAZem HCl 30mg tab ORAL SCH ×2 (06:08→14:48)
--- NOTE | 2018-08-05 07:21 | NUR ---
NURSE NOTES: Received updated report from Yasir BARNETT. Pt. up sitting at the edge of the bed, having breakfast at present. No sign of distress. C/O of mild pain only. IV line at left hand #22g. in placed SL. Bed in low position, locked. Call light within reach. Will cont. to monitor.
--- NOTE | 2018-08-05 07:24 | NUR ---
HAND-OFF: Report given to William Grimaldo RN. Patient in bed AAO X4 eating breakfast with friend at bedside. Patient in stable condition, endorsed plan of care.
[2018-08-05 07:40] LABS: BASOPHILS % (AUTO) 0.5 % (0.0-2.0); EOSINOPHILS % (AUTO) 1.9 % (0.0-3.0); HEMATOCRIT 27.5 % (37.0-47.0); HEMOGLOBIN 8.5 G/DL (12.0-16.0); LYMPHOCYTES % (AUTO) 12.8 % (20.0-45.0); MEAN CORPUSCULAR VOLUME 71 FL (80-99); MONOCYTES % (AUTO) 8.5 % (1.0-10.0); NEUTROPHILS % (AUTO) 76.4 % (45.0-75.0); PLATELET COUNT 450 K/UL (150-450); RED BLOOD COUNT 3.86 M/UL (4.20-5.40); WHITE BLOOD COUNT 7.3 K/UL (4.8-10.8)
[2018-08-05 07:54] LABS: ANION GAP 9 mmol/L (5-15); BLOOD UREA NITROGEN 12 mg/dL (7-18); CALCIUM 8.8 MG/DL (8.5-10.1); CARBON DIOXIDE 25 MMOL/L (21-32); CHLORIDE 105 MMOL/L (98-107); CREATININE 0.8 MG/DL (0.55-1.30); POTASSIUM 3.6 MMOL/L (3.5-5.1); SODIUM 138 MMOL/L (136-145)
[2018-08-05 08:00] VITALS: BP 141/66
[2018-08-05] MEDS: Brimonidine 0.2% Opth Sol LEFT EYE SCH (08:29)
[2018-08-05] MEDS: Sotalol 80mg tab ORAL SCH (08:30)
[2018-08-05] MEDS: RESTASIS BOTH EYES SCH (08:30)
[2018-08-05] MEDS: Norco 5mg/325mg tab ORAL PRN (11:34)
[2018-08-05 12:00] VITALS: BP 134/63
--- NOTE | 2018-08-05 12:28 | Cardiology Progress Note ---
Assessment/Plan Assessment/Plan paf ra anemia hs of anal cancer iron deff \wide complex tachy keep off rythmol on sotalol remains in sinus had 6 bt widecomplex tachy in settign o f low k message left for dr saunders 2/2 stool ob neg however iron level low gi saeed performed ldh normal keep on eliquis ekg not yet avialbe will reorder off norvasc on cardizem seems to be tolerating hold off on treatment for mac until anemia fib is stabilized home today will d/w dr restrepo re wide complex tachy fu with pmd no calls back yet form dr saunders no need for dig will dc off dc meds d/w rn will add mg and correct iflwo Subjective Cardiovascular: Denies: chest pain, lightheadedness, palpitations Respiratory: Denies: shortness of breath Gastrointestinal/Abdominal: Denies: abdominal pain, black stools Genitourinary: Denies: burning Objective Last 24 Hour Vital Signs Date Time Temp Pulse Resp B/P (MAP) Pulse Ox O2 Delivery O2 Flow Rate FiO2 08/05/18 09:00 Nasal Cannula 2.0 08/05/18 08:30 81 141/66 08/05/18 08:00 98.5 81 20 141/66 (91) 95 08/05/18 07:42 72 08/05/18 06:08 75 140/62 08/05/18 05:34 98.3 08/05/18 04:00 67 08/05/18 04:00 98.4 75 20 140/62 (88) 95 08/05/18 00:00 78 08/05/18 00:00 98.3 84 20 144/82 (102) 96 08/04/18 22:58 84 144/82 08/04/18 21:05 85 148/73 08/04/18 21:00 Nasal Cannula 2.0 08/04/18 20:00 77 08/04/18 19:53 98.1 85 20 148/73 (98) 94 08/04/18 16:00 98.2 80 21 134/57 (82) 93 08/04/18 15:10 80 08/04/18 14:46 81 150/62 08/04/18 12:48 97.5 72 21 128/57 (80) 100 General Appearance: no apparent distress, alert Neck: supple Cardiovascular: normal rate, regular rhythm Respiratory/Chest: lungs clear Abdomen: normal bowel sounds, non tender, soft Extremities: no swelling Intake and Output 08/04/18 08/05/18 19:00 07:00 Intake Total 400 ml Balance 400 ml IV Total 400 ml # Bowel Movements 1 1 Laboratory Tests Test 08/05/18 07:00 White Blood Count 7.3 K/UL (4.8-10.8) Red Blood Count 3.86 M/UL (4.20-5.40) L Hemoglobin 8.5 G/DL (12.0-16.0) L Hematocrit 27.5 % (37.0-47.0) L Mean Corpuscular Volume 71 FL (80-99) L Mean Corpuscular Hemoglobin 21.9 PG (27.0-31.0) L Mean Corpuscular Hemoglobin Concent 30.8 G/DL (32.0-36.0) L Red Cell Distribution Width 20.0 % (11.6-14.8) H Platelet Count 450 K/UL (150-450) Mean Platelet Volume 5.3 FL (6.5-10.1) L Neutrophils (%) (Auto) 76.4 % (45.0-75.0) H Lymphocytes (%) (Auto) 12.8 % (20.0-45.0) L Monocytes (%) (Auto) 8.5 % (1.0-10.0) Eosinophils (%) (Auto) 1.9 % (0.0-3.0) Basophils (%) (Auto) 0.5 % (0.0-2.0) Sodium Level 138 MMOL/L (136-145) Potassium Level 3.6 MMOL/L (3.5-5.1) Chloride Level 105 MMOL/L (98-107) Carbon Dioxide Level 25 MMOL/L (21-32) Anion Gap 9 mmol/L (5-15) Blood Urea Nitrogen 12 mg/dL (7-18) Creatinine 0.8 MG/DL (0.55-1.30) Estimat Glomerular Filtration Rate mL/min (>60) Glucose Level 96 MG/DL (74-106) Calcium Level 8.8 MG/DL (8.5-10.1) Luis Escobar MD Aug 05, 2018 12:28
--- NOTE | 2018-08-05 12:38 | NUR ---
P.T Note: P.T evaluation completed and tx initiated. Please refer to P.T evaluation for current functional status. Skilled P.T service is warranted to improve strength, ROM, endurance to increase activity tolerance, mobility independence and safety during stay. Recommend home P.T for further balance and strength training at [facility]. Thank you for this referral. Addendum: 08/05/18 at 1238 by BRANDIN MERAZ PT Amended: Links added.
--- NOTE | 2018-08-05 13:37 | Cardiology Report ---
APPROVED REPORT EKG Measurement Heart [id number] Normal sinus rhythm T wave abnormality, consider inferior ischemia T wave abnormality, consider anterolateral ischemia Abnormal ECG
--- NOTE | 2018-08-05 13:41 | Cardiology Report ---
APPROVED REPORT EKG Measurement Heart [id number] Normal sinus rhythm T wave abnormality, consider inferior ischemia T wave abnormality, consider anterolateral ischemia Abnormal ECG
[2018-08-05] MEDS: Eliquis 2.5mg tablet ORAL SCH ×2 (14:03→18:29)
--- NOTE | 2018-08-05 14:41 | GI Progress Note ---
Assessment/Plan Problems: (1) Anemia ICD Codes: D64.9 - Anemia, unspecified SNOMED: [id number] (2) HGB 7.1 Status: stable Status Narrative Discussed with Dr. Mason Assessment/Plan SUMMARY OF FINDINGS: 1. Gastritis, status post biopsy. 2. Internal hemorrhoids. RECOMMENDATION: 1. Follow up biopsy results and treat accordingly. 2. Resume diet. 3. Follow labs. 4. Okay to anticoagulate for now for cardiac issues. Discharge planning Outpatient follow-up The patient was seen and examined at bedside and all new and available data was reviewed in the patients chart. I agree with the above findings, impression and plan. (Patient seen earlier today. Signature stamp does not reflect patient encounter time.). - Nicola Mason MD Subjective Subjective States that her abdominal pain has improved Complaint of abdominal bloating Objective Last 24 Hour Vital Signs Date Time Temp Pulse Resp B/P (MAP) Pulse Ox O2 Delivery O2 Flow Rate FiO2 08/05/18 12:00 98.2 67 20 134/63 (86) 98 08/05/18 09:00 Nasal Cannula 2.0 08/05/18 08:30 81 141/66 08/05/18 08:00 98.5 81 20 141/66 (91) 95 08/05/18 07:42 72 08/05/18 06:08 75 140/62 08/05/18 05:34 98.3 08/05/18 04:00 67 08/05/18 04:00 98.4 75 20 140/62 (88) 95 08/05/18 00:00 78 08/05/18 00:00 98.3 84 20 144/82 (102) 96 08/04/18 22:58 84 144/82 08/04/18 21:05 85 148/73 08/04/18 21:00 Nasal Cannula 2.0 08/04/18 20:00 77 08/04/18 19:53 98.1 85 20 148/73 (98) 94 08/04/18 16:00 98.2 80 21 134/57 (82) 93 08/04/18 15:10 80 08/04/18 14:46 81 150/62 Intake and Output 08/04/18 08/05/18 18:59 06:59 Intake Total 400 ml Balance 400 ml IV Total 400 ml # Bowel Movements 1 1 Laboratory Tests Test 08/05/18 07:00 White Blood Count 7.3 K/UL (4.8-10.8) Red Blood Count 3.86 M/UL (4.20-5.40) L Hemoglobin 8.5 G/DL (12.0-16.0) L Hematocrit 27.5 % (37.0-47.0) L Mean Corpuscular Volume 71 FL (80-99) L Mean Corpuscular Hemoglobin 21.9 PG (27.0-31.0) L Mean Corpuscular Hemoglobin Concent 30.8 G/DL (32.0-36.0) L Red Cell Distribution Width 20.0 % (11.6-14.8) H Platelet Count 450 K/UL (150-450) Mean Platelet Volume 5.3 FL (6.5-10.1) L Neutrophils (%) (Auto) 76.4 % (45.0-75.0) H Lymphocytes (%) (Auto) 12.8 % (20.0-45.0) L Monocytes (%) (Auto) 8.5 % (1.0-10.0) Eosinophils (%) (Auto) 1.9 % (0.0-3.0) Basophils (%) (Auto) 0.5 % (0.0-2.0) Sodium Level 138 MMOL/L (136-145) Potassium Level 3.6 MMOL/L (3.5-5.1) Chloride Level 105 MMOL/L (98-107) Carbon Dioxide Level 25 MMOL/L (21-32) Anion Gap 9 mmol/L (5-15) Blood Urea Nitrogen 12 mg/dL (7-18) Creatinine 0.8 MG/DL (0.55-1.30) Estimat Glomerular Filtration Rate mL/min (>60) Glucose Level 96 MG/DL (74-106) Calcium Level 8.8 MG/DL (8.5-10.1) Magnesium Level 1.8 MG/DL (1.8-2.4) Height (Feet): 5 Height (Inches): 3.00 Weight (Pounds): 114 General Appearance: WD/WN, no apparent distress, alert Cardiovascular: normal rate Respiratory/Chest: normal breath sounds, no respiratory distress Abdominal Exam: normal bowel sounds, non tender, soft Extremities: normal range of motion, non-tender Clarisa Bradley NP Aug 05, 2018 14:41
--- NOTE | 2018-08-05 15:30 | Cardiac Electrophysiology PN ---
Assessment/Plan Problem List: (1) Anemia (2) EUGENIE (mycobacterium avium-intracellulare) infection (3) COPD (chronic obstructive pulmonary disease) (4) Rapid atrial fibrillation Status: stable, progressing Status Narrative Mrs. Woody is tolerating low dose sotalol. She has not had further AF, but did have a short ( 6 bt) run of NSVT on telemetry - asymptomatic Mg and K are low. She remains anemic, but w/ improved h/h following transfusion of PRBCs. no active bleed noted on ugi/lgi endoscopy Assessment/Plan Will continue sotalol 80 mg bid and monitor QTc ( 440 ms today) Continue diltiazem and restart eliquis supplement mg, k. ECHO w/ normal LV systolic function, + diastolic dysfunction. Aortic sclerosis d/w Drs. Escobar and Manuel Subjective ROS Limited/Unobtainable: No Subjective Cardiac EP Mrs. Woody has no complaints of palpitations or CP Endoscopy results noted. Objective Last 24 Hour Vital Signs Date Time Temp Pulse Resp B/P (MAP) Pulse Ox O2 Delivery O2 Flow Rate FiO2 08/05/18 14:48 67 134/63 08/05/18 12:00 98.2 67 20 134/63 (86) 98 08/05/18 09:00 Nasal Cannula 2.0 08/05/18 08:30 81 141/66 08/05/18 08:00 98.5 81 20 141/66 (91) 95 08/05/18 07:42 72 08/05/18 06:08 75 140/62 08/05/18 05:34 98.3 08/05/18 04:00 67 08/05/18 04:00 98.4 75 20 140/62 (88) 95 08/05/18 00:00 78 08/05/18 00:00 98.3 84 20 144/82 (102) 96 08/04/18 22:58 84 144/82 08/04/18 21:05 85 148/73 08/04/18 21:00 Nasal Cannula 2.0 08/04/18 20:00 77 08/04/18 19:53 98.1 85 20 148/73 (98) 94 08/04/18 16:00 98.2 80 21 134/57 (82) 93 General Appearance: WD/WN, alert EENT: PERRL/EOMI Neck: supple, no JVD Rhythm: NSR Cardiovascular: normal rate, regular rhythm, no gallop/murmur Respiratory/Chest: other - dec BS bilat Abdomen: normal bowel sounds, non tender, soft Extremities: no swelling Intake and Output 08/04/18 08/05/18 19:00 07:00 Intake Total 400 ml Balance 400 ml IV Total 400 ml # Bowel Movements 1 1 Laboratory Tests Test 08/05/18 07:00 White Blood Count 7.3 K/UL (4.8-10.8) Red Blood Count 3.86 M/UL (4.20-5.40) L Hemoglobin 8.5 G/DL (12.0-16.0) L Hematocrit 27.5 % (37.0-47.0) L Mean Corpuscular Volume 71 FL (80-99) L Mean Corpuscular Hemoglobin 21.9 PG (27.0-31.0) L Mean Corpuscular Hemoglobin Concent 30.8 G/DL (32.0-36.0) L Red Cell Distribution Width 20.0 % (11.6-14.8) H Platelet Count 450 K/UL (150-450) Mean Platelet Volume 5.3 FL (6.5-10.1) L Neutrophils (%) (Auto) 76.4 % (45.0-75.0) H Lymphocytes (%) (Auto) 12.8 % (20.0-45.0) L Monocytes (%) (Auto) 8.5 % (1.0-10.0) Eosinophils (%) (Auto) 1.9 % (0.0-3.0) Basophils (%) (Auto) 0.5 % (0.0-2.0) Sodium Level 138 MMOL/L (136-145) Potassium Level 3.6 MMOL/L (3.5-5.1) Chloride Level 105 MMOL/L (98-107) Carbon Dioxide Level 25 MMOL/L (21-32) Anion Gap 9 mmol/L (5-15) Blood Urea Nitrogen 12 mg/dL (7-18) Creatinine 0.8 MG/DL (0.55-1.30) Estimat Glomerular Filtration Rate mL/min (>60) Glucose Level 96 MG/DL (74-106) Calcium Level 8.8 MG/DL (8.5-10.1) Magnesium Level 1.8 MG/DL (1.8-2.4) Sandhya Turner MD Aug 05, 2018 15:30
--- NOTE | 2018-08-05 15:59 | NUR ---
*-* DISCHARGE PLANNING *-* PATIENT HAS BEEN REFERRED TO: [facility] P:[phone] F:[phone] Addendum: 08/06/18 at 0936 by GURPREET RIVERA CM SPOKE WITH DEVENDRA AT [facility] THEY HAVE ACCEPTED PATIENT AND WILL FOLLOW
[2018-08-05 16:00] VITALS: BP 109/61
--- NOTE | 2018-08-05 16:46 | General Progress Note ---
Assessment/Plan Assessment/Plan Assessment/Recommendations # Anal carcinoma - is s/p Gianfranco protocol involving chemotherapy and radiation, currently is disease free --> outpatient management as needed, screening/surveillance --> tumor markers as needed, prn basis ordered # Anemia of chronic disease likely due to chf, other chronic medical issues --> anemia panel has been reviewed and c/w acd with minor aid that could be treated with po iron --> ferrous sulfate as outpatient --> no evidence of hemolysis is noted --> hgb goal>7 # Rapid atrial fibrillation --> eliquis as per cardiology # Acute exacerbation of CHF (congestive heart failure) --> per cardiology evaluation # Tachycardiac The timing of this note does not necessarily reflect the time of the patient was seen Greatly appreciate consultation! Subjective Constitutional: Denies: no symptoms, chills, diaphoresis, fever, malaise, weakness, other HEENT: Denies: no symptoms, eye pain, blurred vision, tearing, double vision, ear pain, ear discharge, nose pain, nose congestion, throat pain, throat swelling, mouth pain, mouth swelling, other Respiratory: Denies: no symptoms, cough, orthopnea, shortness of breath, SOB with excertion, SOB at rest, sputum, stridor, wheezing, other Endocrine: Denies: no symptoms, excessive sweating, flushing, intolerance to cold, intolerance to heat, increased hunger, increased thirst, increased urine, unexplained weight gain, unexplained weight loss, other Hematologic/Lymphatic: Denies: no symptoms, anemia, easy bleeding, easy bruising, other Allergies: Coded Allergies: DIPHENHYDRAMINE (Verified Allergy, Unknown, 03/26/15) SHELLFISH DERIVED (Verified Allergy, Unknown, 03/26/15) Uncoded Allergies: HUMARA (Allergy, Unknown, 08/02/18) Subjective 08/04: Seen by bedside, awake, comfortable, hgb 8.9, EGD and colonoscopy today. 08/05: egd and colo negative, potential dc today, no f/c Objective Last 24 Hour Vital Signs Date Time Temp Pulse Resp B/P (MAP) Pulse Ox O2 Delivery O2 Flow Rate FiO2 08/05/18 14:48 67 134/63 08/05/18 12:00 98.2 67 20 134/63 (86) 98 08/05/18 11:55 69 08/05/18 09:00 Nasal Cannula 2.0 08/05/18 08:30 81 141/66 08/05/18 08:00 98.5 81 20 141/66 (91) 95 08/05/18 07:42 72 08/05/18 06:08 75 140/62 08/05/18 05:34 98.3 08/05/18 04:00 67 08/05/18 04:00 98.4 75 20 140/62 (88) 95 08/05/18 00:00 78 08/05/18 00:00 98.3 84 20 144/82 (102) 96 08/04/18 22:58 84 144/82 08/04/18 21:05 85 148/73 08/04/18 21:00 Nasal Cannula 2.0 08/04/18 20:00 77 08/04/18 19:53 98.1 85 20 148/73 (98) 94 Intake and Output 08/04/18 08/05/18 18:59 06:59 Intake Total 400 ml Balance 400 ml IV Total 400 ml # Bowel Movements 1 1 Laboratory Tests 08/05/18 07:00: White Blood Count 7.3, Red Blood Count 3.86L, Hemoglobin 8.5L, Hematocrit 27.5L , Mean Corpuscular Volume 71L, Mean Corpuscular Hemoglobin 21.9L, Mean Corpuscular Hemoglobin Concent 30.8L, Red Cell Distribution Width 20.0H, Platelet Count 450, Mean Platelet Volume 5.3L, Neutrophils (%) (Auto) 76.4H, Lymphocytes (%) (Auto) 12.8L, Monocytes (%) (Auto) 8.5, Eosinophils (%) (Auto) 1.9, Basophils (%) (Auto) 0.5, Sodium Level 138, Potassium Level 3.6, Chloride Level 105, Carbon Dioxide Level 25, Anion Gap 9, Blood Urea Nitrogen 12, Creatinine 0.8, Estimat Glomerular Filtration Rate , Glucose Level 96, Calcium Level 8.8, Magnesium Level 1.8 Height (Feet): 5 Height (Inches): 3.00 Weight (Pounds): 114 Objective Sp02 EP Interpretation: reviewed, normal General Appearance: well appearing, no apparent distress, alert Head: normocephalic, atraumatic Eyes: bilateral eye PERRL, bilateral eye EOMI Neck: full range of motion, supple, no meningismus Respiratory: chest non-tender, lungs clear, normal breath sounds Cardiovascular: no murmur, tachycardia, irregularly irregular Gastrointestinal: normal bowel sounds, non tender Musculoskeletal: back normal, gait/station normal Arvind Jain MD Aug 05, 2018 16:46
[2018-08-05] MEDS ORDERED: SOTALOL80 M1 ORAL (17:56)
[2018-08-05] MEDS ORDERED: ELIQUIS5 MG PO (17:58)
[2018-08-05] MEDS ORDERED: CARDIZEM CD120 MG ORAL (17:58)
[2018-08-05] MEDS ORDERED: FERROUS SULFAT325 MG ORAL (17:59)
[2018-08-05] MEDS ORDERED: FOLIC ACID1 MG ORAL (17:59)
[2018-08-05] MEDS ORDERED: ACETAMINOPHEN-1 EAC1 ORAL (18:00)
[2018-08-05] MEDS ORDERED: Lactobacillus-GG tablet ORAL SCH (18:00)
[2018-08-05] MEDS ORDERED: NS 275ml ONE (18:34)
[2018-08-05] MEDS ORDERED: Tubing IV Secondary IV ONE (18:34)
--- NOTE | 2018-08-05 18:37 | NUR ---
Discharge: Patient is being discharged to home with [facility] health services from medical care. Awake, alert and oriented x4. After care instructions were given. Patient verbalized understanding of after care instructions upon discharge. All medical devices such as IV, satellite project site monitor and ID band were removed. Patient wheeled out with all personal belongings.
--- NOTE | 2018-08-05 19:45 | Discharge Summary ---
DATE OF ADMISSION: 08/02/2018 DATE OF DISCHARGE: 08/05/2018 SUBJECTIVE: The patient is a 72 years old female, came to the emergency room for having chest pain, short of breath, and was also found to have atrial fibrillation with rapid ventricular rate and coagulopathy. The patient was admitted on telemetry bed to rule out of myocardial infarction. Cardiology consult was obtained. The patient's hematuria resolved, also had episode of anemia. Hemoglobin dropped from 10 to 8.9, but she is asymptomatic. Hemoglobin was 7.4, was transfused one unit. The patient is asymptomatic. DISCHARGE DIAGNOSES: 1. Coagulopathy. 2. Atrial fibrillation with rapid ventricular rate is resolved. 3. Hypertension. 4. Severe arthritis. 5. CHF. 6. Anemia. DIET: She is on regular diet. ACTIVITY: As tolerated. DISCHARGE MEDICATIONS: See the list from the hospital. The patient was cleared by residency coordinator. Walter Vargas M.D. DR: JULIAN JOB#: [id number] CC:
--- NOTE | 2018-08-08 23:45 | Cardiology Report ---
APPROVED REPORT EKG Measurement Heart [id number] 122P41 [id number] Normal sinus rhythm T wave abnormality, consider inferior ischemia T wave abnormality, consider anterolateral ischemia Prolonged QT Abnormal ECG
--- NOTE | 2018-08-08 23:45 | Cardiology Report ---
APPROVED REPORT EKG Measurement Heart [id number] [id number] Normal sinus rhythm T wave abnormality, consider inferolateral ischemia Abnormal ECG
== END 2018-08-05 18:35 | disposition home health service (06) | DRG 309 ==
LOC: EDBD 05:24 → EMR 05:43 → 2E 05:50 → EDBEDREQ 08:27 → 2E 11:34
PROC: 0DB68ZX Excision of Stomach, Via Natural or Artificial Opening Endoscopic, Diagnostic (ICD-10-PCS; principal; 2018-08-04 11:01)
PROC: 0DJD8ZZ Inspection of Lower Intestinal Tract, Via Natural or Artificial Opening Endoscopic (ICD-10-PCS; principal; 2018-08-04 11:01)
DX: I48.0 Paroxysmal atrial fibrillation (principal); D68.9 Coagulation defect, unspecified; A31.0 Pulmonary mycobacterial infection; I50.9 Heart failure, unspecified; J44.9 Chronic obstructive pulmonary disease, unspecified; K29.70 Gastritis, unspecified, without bleeding; K64.8 Other hemorrhoids; M06.9 Rheumatoid arthritis, unspecified; D50.9 Iron deficiency anemia, unspecified; Z86.73 Personal history of transient ischemic attack (TIA), and cerebral infarction without residual deficits; I11.0 Hypertensive heart disease with heart failure; R53.1 Weakness; Z85.048 Personal history of other malignant neoplasm of rectum, rectosigmoid junction, and anus; Z79.01 Long term (current) use of anticoagulants; Z87.891 Personal history of nicotine dependence
CPT/HCPCS: 36415; 71045; 80048; 80053; 80061; 81003; 82270; 82378; 82550; 82553; 82728; 83540; 83550; 83615; 83735; 83880; 84443; 84484; 85007; 85025; 85610; 85730; 86850; 86900; 86901; 86920; 93005; 93306; 94003; 94150; 96374; 96376; 99291; J8499